=== PATIENT | male | born 1995 | race Caucasian/White ===

== ENCOUNTER → 2019-10-20 08:50 | Outpatient (CLI) | payer MEDICAID, SELFPAY ==
[2017-07-30 21:26] VITALS: BMI 26.5
[2019-10-20 10:41] LABS: Hemoglobin 14.3 g/dL (13.0-16.5); Mean Corp Hgb Conc 32.5 g/dL (32-36); Mean Corpuscular Hgb 29.2 pg (27.0-32.0); Mean Corpuscular Volume 89.8 fL (80-94); Mean Platelet Vol. 10.8 fl (6.2-12.0); Platelet Count 318 K/mm3 (150-450); RBC Distribution Width CV 13.2 % (11.6-14.6); RBC Distribution Width SD 43.6 fl (35.1-43.9); White Blood Count 10.3 K/mm3 (4.4-11.0)
[2019-10-20 11:13] LABS: ALB/GLOB Ratio 0.9 RATIO (0.9-2.4); AST(SGOT) 24 U/L (15-37); Alanine Aminotransfer ALT/SGPT 40 U/L (16-61); Alkaline Phosphatase 61 U/L (45-117); Anion Gap 6 (5-15); BUN 11 mg/dL (7-18); BUN/Creat Ratio 12.6 RATIO (10-20); Calcium,Total 9.3 mg/dL (8.5-10.1); Chloride 105 mmol/L (98-107); Creatinine, Serum 0.88 mg/dL (0.70-1.30); EST Glomerular Filtration Rate 112 mL/min (>60); Est Glom Filt Rate - Afr Amer 136 mL/min (>60); Globulin 4.3 g/dL (2.2-4.2); Glucose 125 mg/dL (74-106); Potassium 4.2 mmol/L (3.5-5.1); Protein, Total 8.3 g/dL (6.4-8.2); Sodium Level 140 mmol/L (136-145)
== END ==
LOC: LAB.FUTURE 08:55 → LAB 08:57
PROVIDERS: Family Provider Student in an Organized Health Care Education/Training Program; PCP Student in an Organized Health Care Education/Training Program; Referring Provider Student in an Organized Health Care Education/Training Program; Visit Provider Student in an Organized Health Care Education/Training Program
DX: I10 Essential (primary) hypertension (principal)
CPT/HCPCS: 36415; 80053; 85027

== ENCOUNTER → 2020-03-30 09:12 | Outpatient (CLI) | payer MEDICAID, SELFPAY ==
[2017-07-30 21:26] VITALS: BMI 26.5
[2020-03-30 10:06] LABS: Hematocrit 41.9 % (40-54); Hemoglobin 13.1 g/dL (13.0-16.5); Mean Corp Hgb Conc 31.3 g/dL (32-36); Mean Corpuscular Volume 92.7 fL (80-94); Mean Platelet Vol. 10.6 fl (6.2-12.0); Platelet Count 326 K/mm3 (150-450); RBC Distribution Width CV 13.4 % (11.6-14.6); RBC Distribution Width SD 45.9 fl (35.1-43.9); Red Blood Count 4.52 M/mm3 (4.6-6.2); White Blood Count 10.4 K/mm3 (4.4-11.0)
[2020-03-30 10:46] LABS: ALB/GLOB Ratio 0.9 RATIO (0.9-2.4); AST(SGOT) 14 U/L (15-37); Alanine Aminotransfer ALT/SGPT 29 U/L (16-61); Albumin, Serum 3.7 g/dL (3.2-5.0); Alkaline Phosphatase 57 U/L (45-117); Anion Gap 5 (5-15); BUN 15 mg/dL (7-18); BUN/Creat Ratio 18.9 RATIO (10-20); Calcium,Total 9.3 mg/dL (8.5-10.1); Chloride 106 mmol/L (98-107); Cholesterol 228 mg/dL (200); Creatinine, Serum 0.79 mg/dL (0.70-1.30); EST Glomerular Filtration Rate 125 mL/min (>60); Est Glom Filt Rate - Afr Amer 152 mL/min (>60); Globulin 4.2 g/dL (2.2-4.2); Glucose 106 mg/dL (74-106); High Density Lipoprotein 33 mg/dL; Potassium 4.2 mmol/L (3.5-5.1); Protein, Total 7.9 g/dL (6.4-8.2); Sodium Level 138 mmol/L (136-145); Triglycerides 310 mg/dL; Very Low Density Lipoprotein 62 mg/dL (5-40)
--- OUTSIDE RECORDS SUMMARY | 2020-08-16 17:40 | XMS RPT_ITS | CCD ---
:1995 External Reference #:[id number] Author Organization [facility] [employer] Care Team Providers Name Role Phone Unavailable Unavailable Unavailable Results Result Name Value Range Unit Interpretation Flag Date Location cur on 2020-01-21 CUR . Normal 01-21-2020 Zia feldman MICRO - Microbiology [facility] ([place]) ([id number]) PROCEDURE: Urine Culture [*1] SOURCE: Urine, Clean Catch BODY SITE: COLLECTED DATE/TIME: 01/18/20 14:49 EDT RECEIVED DATE/TIME: 01/19/2020 15:52 EDT START DATE/TIME: 01/19/2020 15:52 EDT FREE TEXT SOURCE: FINAL REPORTS Final Report [] Verified Date/Time/Personnel: 01/21/2020 07:55 EDT <10,000 cfu/ml. No Significant growth. Sensitivity not indicated. PRELIMINARY REPORTS Preliminary Report [] Verified Date/Time/Personnel: 01/20/2020 08:10 EDT No growth to date Performing Locations *1: This test was performed at: [facility], [address] [place] [address], [id number] , [facility] Comment: Performed By: #### CUR #### [address] [address] Summary Purpose Family History No Family History Records Found Advance Directives No Advanced Directives Records Found Additional Source Comments FOR RECORDS PERTAINING TO PATIENTS WHO ARE OR HAVE BEEN ENROLLED IN A CHEMICAL DEPENDENCY/SUBSTANCE ABUSE PROGRAM, SOME INFORMATION MAY BE OMITTED. This clinical summary was aggregated from multiple sources. Caution should be exercised in using it in the provision of clinical care. This summary normalizes information from multiple sources, and as a consequence, information in this document may materially changethe coding, format and clinical context of patient data. In addition, data may be omittedin some cases. CLINICAL DECISIONS SHOULD BE BASED ON THE PRIMARY CLINICAL RECORDS. [facility] provides no warranty or guarantee of the accuracy or completeness of information in this document. UNRECOGNIZED CONTENT PROVIDED BELOW FOR UNRECOGNIZED SECTION No Status Records Found UNRECOGNIZED CONTENT PROVIDED BELOW FOR UNRECOGNIZED SECTION INFORMATION SOURCE DATE CREATED AUTHOR AUTHOR'S ORGANIZATIO N 01/22/2020 [facility] Found ation ([place])
== END ==
PROVIDERS: PCP Student in an Organized Health Care Education/Training Program; Referring Provider Student in an Organized Health Care Education/Training Program; Visit Provider Student in an Organized Health Care Education/Training Program
DX: I10 Essential (primary) hypertension (principal)
CPT/HCPCS: 36415; 80053; 80061; 85027

== ENCOUNTER 2022-10-28 19:12 | Inpatient (IN) | payer MEDICAID, SELFPAY ==
[2022-10-28 19:13] VITALS: BP 148/84; PULSE 103; RESP 15; TEMP 36.9; O2SAT 100; BMI 26.9
--- NOTE | 2022-10-28 19:26 | ED.VIS.LOWEX ---
HPI History of Present Illness Chief Complaint: Fall Informant: patient and parent Narrative Narrative: History of developmental delay presents with mother evaluation unwitnessed fall in the basement while at sister's house. Pain in the distal right thigh. Reports not put much weight on it. Ibuprofen given. This happened 3 to 4 hours ago. Denies headache chest pains rib pains. Patient points to the distal anterior femur. PFSH PFSH Medical History History of repaired hypospadias Tonsillectomy planned Home Medications Vyvanse 07/30/17 [History Last Taken Unknown] multivitamin (Multiple Vitamins tablet) 1 ea PO DAILY 07/30/17 [History Last Taken Unknown] ondansetron 4 mg disintegrating tablet 4 mg PO Q8H PRN PRN Nausea #10 tabs 07/31/17 [Rx Last Taken Unknown] cetirizine 10 mg capsule (Zyrtec) 10 mg PO DAILY PRN 10/01/21 [History Last Taken Unknown] guanfacine 1 mg tablet 1 mg PO DAILY 10/01/21 [History Last Taken Unknown] lisinopril 2.5 mg tablet 2.5 mg PO DAILY 10/01/21 [History Last Taken Unknown] metformin 500 mg tablet 500 mg PO DAILY 10/01/21 [History Last Taken Unknown] nitrofurantoin macrocrystal 25 mg capsule 50 mg PO QHS 10/01/21 [History Last Taken Unknown] Allergy/AdvReac Type Severity Reaction Status Date / Time Penicillins Allergy Mild UNKNOWN Verified 10/28/22 19:13 Family History Mother Pre-diabetes Father Heart disease Diabetes Asthma Surgical History History of hand surgery Myringotomy tube status Social History Smoking Status: Never smoker alcohol intake: never substance use type: does not use ROS ROS ED Constitutional Constitutional ED: Denies chills, fever(s) or sweats Eyes Eyes: Denies change in vision ENT ENT ED: Denies dysphagia or sore throat Cardiovascular Cardiovascular: Denies chest pain, leg edema, palpitations or racing heartbeat Respiratory/Chest Respiratory/Chest: Denies cough, dyspnea or dyspnea on exertion Gastrointestinal Gastrointestinal: Denies abdominal pain, diarrhea, nausea or vomiting Genitourinary Genitourinary ED: Denies dysuria, hematuria or urinary frequency Musculoskeletal Musculoskeletal: Reports extremity pain; Denies back pain or neck pain Integumentary Denies rash or wounds Neurologic Neurologic: Denies headache(s), paresthesias or weakness EXAM Physical Exam Const Vital Signs: 10/28/22 19:13 10/28/22 19:33 Temperature 98.4 F Temperature Source Temporal Pulse Rate 103 H Respiratory Rate 15 Respiratory Effort Normal Respiratory Depth Normal Respiratory Pattern Normal Blood Pressure 148/84 H Blood Pressure Mean 105 Pulse Ox 100 Oxygen Delivery Method Room Air Positive well nourished and well developed Constitutional Narrative: Talking and answering questions appropriately. General Appearance ED: well developed and NAD HEENT Reports moist mucous membranes normocephalic and atraumatic Eyes PERRL, EOMs intact bilaterally and conjunctivae normal General Eye ED: Yes normal appearance of both eyes Neck no lymphadenopathy and supple General: Negative for tenderness Chest Wall Chest: Negative for tenderness Resp normal respiratory effort and normal air movement Effort and Inspection: symmetric chest movement; Negative for respiratory distress Cardio regular rate, regular rhythm and no murmurs Peripheral Pulses: pulses 2+ throughout GI normal to inspection, nondistended, normoactive bowel sounds and non-tender Palpation: Negative for guarding or rebound tenderness present Back/Spine no CVA tenderness and no thoracic nor lumbar tenderness Extremity normal to inspection Extremity Narrative: Right lower extremity: Negative logroll. No deformities of the thigh mild tenderness distal femur. Knee extensor is intact. Skin intact no ecchymosis. Neuro vas intact distally. General Extremety ED: Negative for edema or tenderness General Extremity: Negative for edema Neuro oriented x3 and no sensory deficits noted Sensorium / Orientation: awake and alert Skin no rashes or lesions noted and no wounds MDM MDM MDM Narrative Medical decision making narrative: Patient presenting with a fall pointing pain to the distal femur. There is no deformities. He is given Tylenol, 2 view femur x-ray obtained right side reviewed by myself read by radiology shows no acute process. 2030: Attempted to walk the patient bedside upon standing, reports pain in the same area of the femur and with sit back down. Clinical evaluation cannot reproduce the pain his extensor mechanism is intact he has no leg pain. With his the mental delay, I will obtain tib-fib films and reevaluate. Mother reporting that she cannot take care of him if he cannot walk. 2100: 2 view tib-fib reviewed by myself and read by radiology shows no acute process. Patient stable now time to ambulate. Therefore I discussed with hospitalist Dr. Grewal for admission to medical floor for observations. Radiography Diagnostic Testing: Clinical Impression(s) from Imaging Studies Femur X-Ray 10/28/22 20:04 IMPRESSION: No acute or healing fracture or malalignment. Electronically Signed: Les Crabtree MD at 20:25 EST Reading Location ID and State: [id number] / [place] Tel , Service support , Tibia/Fibula X-Ray 10/28/22 20:43 IMPRESSION: Negative right tibia and fibula x-rays. Electronically Signed: Les Crabtree MD at 20:59 EST , Discharge Plan Dx/Rx/DC Orders Clinical Impression: Contusion of right thigh, initial encounter, Fall, Developmental delay with autism spectrum disorder and gait instability Disposition Disposition: Acute Care Hospital [facility]
[2022-10-28] MEDS: Acetaminophen 500 MG Tablet 1000 MG PO (19:39)
--- NOTE | 2022-10-28 20:04 | RAD_ITS ---
EXAM: XR RIGHT FEMUR, 2 VIEWS CLINICAL INDICATION: injury TECHNIQUE: Frontal and lateral views of the right femur. This report was created using [employer] report generation technology. COMPARISON: None. FINDINGS: BONES/JOINTS: Prominent developmental bump at the superolateral right femoral head neck junction can predispose to femoral acetabular impingement. No acute fracture. No subluxation. Normal alignment. Preservation of the joint space. No sclerotic or destructive changes observed. SOFT TISSUES: Unremarkable. No soft tissue swelling or gas. No radiopaque foreign body. RAD/Femur Min 2 Views IMPRESSION: No acute or healing fracture or malalignment. Electronically Signed: Les Crabtree MD at 20:25 EST ,
--- NOTE | 2022-10-28 20:43 | RAD_ITS ---
EXAM: XR RIGHT TIBIA AND FIBULA, 2 VIEWS CLINICAL INDICATION: injury TECHNIQUE: Frontal and lateral views of the right tibia and fibula. This report was created using [employer] report generation technology. COMPARISON: None. FINDINGS: BONES/JOINTS: Unremarkable. No acute fracture. No subluxation. Normal alignment. Preservation of the joint space. No sclerotic or destructive changes observed. SOFT TISSUES: Unremarkable. No soft tissue swelling or gas. No radiopaque foreign body. RAD/Tibia & Fibula 2 Views IMPRESSION: Negative right tibia and fibula x-rays. Electronically Signed: Les Crabtree MD at 20:59 EST ,
--- NOTE | 2022-10-28 21:19 | HP.PCM.HOS_ITS ---
HPI - General General Date of Admission: 10/28/22 Date of Service: 10/28/22 Chief Complaint: Fall, RLE pain. HPI Narrative The patient is a 27 y/o M w/ PMHx: MRDD w/ cognitive impairment and ADHD, Allergic rhinitis, Diabetes mellitus type II, HTN, Overweight who presents to the [facility] ED on 10/28/22 with history of an unwitnessed fall in the basement while visiting his sister's house with onset of immediate distal right thigh discomfort and inability to bear weight with ibuprofen administration at that time reportedly happening approximately 3 to 4 hours prior to initial ED arrival but given ongoing debility and discomfort prompted ED evaluation. Patient specifically notes ongoing distal anterior thigh pain just superior to the knee but has no specific pain with palpation nor any concerning findings on exam but when attempted to bear weight is unable to still do so in the ED. He is unable to state the exact level of pain on a 10 scale and reports it is more sharp when he attempts to bear weight. Work-up in the ED included T98.4, heart rate 103, BP 148/84, respiratory rate 15, 100% on room air, plain film of the right femur with no acute or healing fracture or malalignment, film of the right tibia/fibula with no acute findings. In the ED although exam not marked appearing and no obvious pain with palpation especially distracted patient with ongoing difficulty to bear weight and mother reporting difficulty caring for h imself by her self therefore plan admission for further evaluation and therapy assessments. [facility] Medical History (Updated 10/28/22 @ 21:[address] Vanessa Grewal MD) ADHD Allergic rhinitis Cognitive impairment Diabetes mellitus, type 2 HTN (hypertension) Hx-hypospadias Overweight Home Medications Vyvanse 07/30/17 [History Last Taken Unknown] multivitamin (Multiple Vitamins tablet) 1 ea PO DAILY 07/30/17 [History Last Taken Unknown] ondansetron 4 mg disintegrating tablet 4 mg PO Q8H PRN PRN Nausea #10 tabs 07/31/17 [Rx Last Taken Unknown] cetirizine 10 mg capsule (Zyrtec) 10 mg PO DAILY PRN 10/01/21 [History Last Taken Unknown] guanfacine 1 mg tablet 1 mg PO DAILY 10/01/21 [History Last Taken Unknown] lisinopril 2.5 mg tablet 2.5 mg PO DAILY 10/01/21 [History Last Taken Unknown] metformin 500 mg tablet 500 mg PO DAILY 10/01/21 [History Last Taken Unknown] nitrofurantoin macrocrystal 25 mg capsule 50 mg PO QHS 10/01/21 [History Last Taken Unknown] Allergy/AdvReac Type Severity Reaction Status Date / Time Penicillins Allergy Mild UNKNOWN Verified 10/28/22 19:13 Family History Mother Pre-diabetes Father Heart disease Diabetes Asthma Surgical History (Updated 10/28/22 @ 21:[address] Vanessa Grewal MD) History of genitourinary surgical procedure History of hand surgery Myringotomy tube status Social History Smoking Status: Never smoker alcohol intake: never substance use type: does not use ROS ROS Narrative Admission Review of Systems: CONSTITUTIONAL: No weight loss, fever, chills, + weakness or fatigue. HEENT: Eyes: No visual loss, blurred vision, double vision or yellow sclerae. Ears, Nose, Throat: No hearing loss, sneezing, congestion, runny nose or sore throat. SKIN: No rash or itching, lesions, wounds. CARDIOVASCULAR: No chest pain, chest pressure or chest discomfort, palpitations, edema, orthopnea, syncopal events. RESPIRATORY: No shortness of breath, cough or sputum, wheezing, hemoptysis. GASTROINTESTINAL: No anorexia, nausea, vomiting or diarrhea, abdominal pain, melena, BRBPR. GENITOURINARY: No dysuria, frequency, urgency or retention. NEUROLOGICAL: + Chronic cognitive impairment with underlying MRDD, no headache, dizziness, syncope, paralysis, ataxia, numbness or tingling in the extremities, focal weakness, change in bowel or bladder control, seizure. MUSCULOSKELETAL: + muscle, back pain, joint pain or stiffness. HEMATOLOGIC: No anemia, bleeding or bruising. LYMPHATICS: No enlarged nodes. No history of splenectomy. PSYCHIATRIC: + ADHD. No history of depression or anxiety. ENDOCRINOLOGIC: No reports of sweating, cold or heat intolerance. No polyuria or polydipsia. ALLERGIES: + history of rhinitis. Vital Signs Vital Signs Vital Signs: 10/28/22 19:13 10/28/22 19:33 Temperature 98.4 F Temperature Source Temporal Pulse Rate 103 H Respiratory Rate 15 Respiratory Effort Normal Respiratory Depth Normal Respiratory Pattern Normal Blood Pressure 148/84 H Blood Pressure Mean 105 Pulse Ox 100 Oxygen Delivery Method Room Air Weight Weight: 215 lb Body Mass Index (BMI) 26.9 Physical Exam Narrative Physical Examination: General: Awake, alert, oriented to self, place and recent events and cooperative, seated upright in the ED bed, interactive, still pointing to the distal anterior thigh region and notes painful. Skin: Normal color, normal turgor, no icterus, no cyanosis. HEENT: AT/NC, EOMI, PERRLA, MMM, no carotid bruits or JVD noted. Lungs: Mildly diminished, greater bases, poor effort, no rales, ronchi or wheezing. Heart: Mildly tachycardic with regular rhythm; no gallop, rub audible. Abdomen: Soft, overweight, NTTP, ND, normal BS, no HSM. Extremities: No cyanosis, no clubbing, no edema, patient unable to bend right knee but with assistance is able to perform, no pain to palpation of the distal anterior thigh, no significant warmth or edema noted, negative Jovani's testing, negative Rachel testing. Neurological: Patient awake, alert, oriented as noted, cognitive function baseline intact with underlying MRDD and chronic cognitive impairment/deficit; pupils equally reactive to light and accommodation, cranial nerves II-XII grossly normal, moving all 4 extremities except limited right lower extremity movement although with examination and assistance does not appear to be in pain and is able to have range of motion, strength however upon requested self- directed activity and any bearing weight attempt significantly inhibited. Psychiatric: Affect appears mildly flat, no acute evidence of depressive or anxiety feelings. Results Radiology Impression Femur X-Ray 10/28/22 20:04 IMPRESSION: No acute or healing fracture or malalignment. Electronically Signed: eLs Crabtree MD at 20:25 EST , Tibia/Fibula X-Ray 10/28/22 20:43 IMPRESSION: Negative right tibia and fibula x-rays. Electronically Signed: Les Crabtree MD at 20:59 EST Reading Location ID and State: [facility] / [place] Tel , Service support , Assessment & Plan Assessment/Plan (1) Contusion of right thigh, initial encounter: PLAN: Plan The patient is a 27 y/o M w/ PMHx: MRDD w/ cognitive impairment and ADHD, Allergic rhinitis, Diabetes mellitus type II, HTN, Overweight who presents to the [facility] ED on 10/28/22 with history of an unwitnessed fall in the basement while visiting his sister's house with onset of immediate distal right thigh discomfort and inability to bear weight with ibuprofen administration at that time reportedly happening approximately 3 to 4 hours prior to initial ED arrival but given ongoing debility and discomfort prompted ED evaluation. #1. Mechanical fall, unwitnessed with intractable right distal anterior thigh discomfort, suspected contusion: Plain film of the right tibia/fibula and right femur unremarkable. Given debility and ongoing discomfort will admit to medical surgical floor, will obtain admission CBC and CMP for medication dosing, if appropriate will continue with as needed Tylenol, use topical osteoarthritic zoran n component, consider addition of Toradol if renal function appropriate, maintain on fall precautions, therapies as well as case management consulted, will attempt also icing application or if not febrile may even consider heat depending on patient preference. If necessary may also add oral narcotic therapies. We will have patient reassessed by therapy and if ongoing debility or difficulty may need to further image and involve orthopedic surgery if appropriate. #2. MRDD with cognitive impairment, ADHD associated: Unclear specific deficit type, from discussion appears high functioning, complicates presentation is difficulty relating his specific discomfort and debility, we will continue patient home Vyvanse regimen was clarified. Case management consult as well as therapies as noted. #3. Hypertension: Continue home regimen including lisinopril, PRN hydralazine. #4. Diabetes mellitus type II: Hold oral home regimen, ADA diet, accu checks w/ ISS. #5. Overweight: Weight loss and lifestyle changes encouraged. #6. Allergic rhinitis: We will continue patient home sertraline regimen. #7. DVT prophylaxis: Low risk however if prolonged immobility will need to initiate. Charges/Coding Visit Charges OBSV E&M: 51810 Initial observation care L2
[2022-10-28 21:56] VITALS: BP 134/80; PULSE 76; RESP 15; TEMP 36.8; O2SAT 99
[2022-10-28 22:15] VITALS: BP 147/76; PULSE 101; RESP 18; TEMP 36.8; O2SAT 100; BMI 29.0
--- NOTE | 2022-10-28 22:51 | ECHOD_ITS ---
Version 2 Reason For Study: MURMUR Procedure This was a 2D Doppler, Color Flow transthoracic echocardiogram. Technically difficult study, Definity deferred due to uncooperative patient. Exam performed portable in patient room. Left Ventricle Normal size and thickness. The left ventricular ejection fraction is 65 %. No evidence for diastolic dysfunction. Right Ventricle Normal right ventricle. Atria The left and right atria are normal. Mitral Valve Chordal systolic anterior motion of the mitral valve. Mild (1+) mitral valve insufficiency. Tricuspid Valve Mild tricuspid valve insufficiency. Pulmonary artery systolic pressure is 49 mmHg. Aortic Valve The aortic valve is not well visualized. Pulmonic Valve The pulmonic valve is not well visualized. Great Vessels Aortic root not well visualized. Pericardium/Pleural No pericardial effusion. MMode/2D Measurements & Calculations RVDd: 3.8 cm LAV(MOD-bp): 63.5 ml LA A4 area: 19.8 cm2 LAV(MOD-bp) Indexed: 27.7 ml/m2 LAV(MOD-sp2): 68.6 ml LAV(MOD-sp4): 53.2 ml RA A4 area: 12.5 cm2 Time Measurements MV dec time: 0.18 sec Doppler Measurements & Calculations MV E max kristofer: 142.8 cm/sec Lat Peak E' Kristofer: 12.9 cm/sec Med Peak E' Kristofer: 9.1 cm/sec MV A max kristofer: 112.0 cm/sec E/E' lat: 11.1 E/E' med: 15.7 MV E/A: 1.3 MV V2 max: 132.9 cm/sec MV dec slope: 808.3 cm/sec2 Ao V2 max: 258.1 cm/sec MV max P.1 mmHg Ao max P.8 mmHg MV V2 mean: 106.4 cm/sec Ao V2 mean: 185.4 cm/sec MV mean P.8 mmHg Ao mean P.4 mmHg MV V2 VTI: 27.2 cm Ao V2 VTI: 43.9 cm PA V2 max: 154.6 cm/sec TR max kristofer: 332.6 cm/sec TR max P.3 mmHg ECHO/Echo Complete Interpretation Summary Technically difficult study, The left ventricular ejection fraction is 65 %. Mild (1+) mitral valve insufficiency. Chordal systolic anterior motion of the mitral valve. with mild to moderate LVO T radient.. Pulmonary artery systolic pressure is 49 mmHg. Mild tricuspid valve insufficiency. Ordering Physician: Vanessa Grewal Performed By: Bety Bello RCS
[2022-10-28] MEDS: Arthritis Pain Compound 60 CLICK TUBE TOPICAL (23:31)
[2022-10-29 00:01] LABS: Bedside Glucose 103 mg/dL (74-106)
[2022-10-29 04:00] VITALS: BP 132/75; PULSE 92; RESP 20; TEMP 36.4; O2SAT 97
[2022-10-29 06:21] LABS: Absolute Lymphocyte Count 3.35 X10^3/uL (0.83-4.51); Absolute Neutrophil Count 8.6 X10^3/uL (2.0-7.7); Basophil# 0.01 X10^3/uL; Basophil% 0.1 % (0-1); Eosinophil# 0.27 X10^3/uL; Hematocrit 37.1 % (40-54); Hemoglobin 12.1 g/dL (13.0-16.5); Lymphocyte # 3.35 X10^3/ul (0.83-4.51); Lymphocyte % 24.7 % (19-41); Mean Corp Hgb Conc 32.6 g/dL (32-36); Mean Corpuscular Hgb 29.3 pg (27.0-32.0); Mean Corpuscular Volume 89.8 fL (80-94); Mean Platelet Vol. 10.5 fl (6.2-12.0); Monocyte# 1.28 X10^3/uL; Monocyte% 9.5 % (0-10); NRBC Flagged by Analyzer 0 % (0-5); Neutrophil # 8.57 X10^3/uL (2.7-7.7); Neutrophil % 63.3 % (47-70); Platelet Count 338 K/mm3 (150-450); RBC Distribution Width CV 13.6 % (11.6-14.6); RBC Distribution Width SD 44.4 fl (35.1-43.9); Red Blood Count 4.13 M/mm3 (4.6-6.2); White Blood Count 13.5 K/mm3 (4.4-11.0)
[2022-10-29 06:55] LABS: Bedside Glucose 99 mg/dL (74-106)
[2022-10-29 07:04] LABS: Anion Gap 9 (5-15); BUN 17 mg/dL (7-18); BUN/Creat Ratio 18.6 RATIO (10-20); Chloride 106 mmol/L (98-107); Creatinine, Serum 0.92 mg/dL (0.70-1.30); EST Glomerular Filtration Rate 104 mL/min (>60); Est Glom Filt Rate - Afr Amer 126 mL/min (>60); Estimated Creatinine Clearance 138.99 ml/min; Glucose 105 mg/dL (74-106); Sodium Level 136 mmol/L (136-145)
[2022-10-29] MEDS: Acetaminophen 325 MG Tablet 650 MG PO ×2 (08:49→13:36)
[2022-10-29 08:50] VITALS: BP 148/90; PULSE 94; RESP 16; TEMP 36.7; O2SAT 97
[2022-10-29] MEDS: Arthritis Pain Compound 60 CLICK TUBE TOPICAL ×2 (08:50→21:18)
[2022-10-29 12:35] LABS: Bedside Glucose 111 mg/dL (74-106)
[2022-10-29 13:39] VITALS: BP 152/90; PULSE 90; RESP 15; TEMP 36.6; O2SAT 98
[2022-10-29 15:23] VITALS: O2SAT 98
[2022-10-29 16:40] LABS: Bedside Glucose 98 mg/dL (74-106)
--- NOTE | 2022-10-29 18:03 | PN.HOSP_ITS ---
Subjective Subjective Reports that he continues to hurt, sitting up in bed about to eat at time of exam, did not voice any other specific complaints Objective Data Objective Data Vital Signs: Vital Signs Temp Pulse Resp BP Pulse Ox O2 Del Method 97.9 F 90 15 152/90 H 98 Room Air 10/29/22 13:39 10/29/22 13:39 10/29/22 13:39 10/29/22 13:39 10/29/22 15:23 10/29/22 15:23 Oxygen Delivery Method Room Air Weight: 102.7 kg Body Mass Index (BMI) 29.0 Intake & Output: Intake and Output for Last 24 Hours 10/27/22 10/28/22 10/29/22 23:59 23:59 23:59 Intake Total 540 / 540 Balance 540 / 540 Lab / Micro Data Result Diagrams: 10/29/22 05:30 10/29/22 05:30 Labs: Laboratory Results - last 24 hr 10/28/22 23:25: POC Glucose 103 10/29/22 05:30: WBC 13.5 H, RBC 4.13 L, Hgb 12.1 L, Hct 37.1 L, MCV 89.8, MCH 29.3, MCHC 32.6, RDW Std Deviation 44.4 H, RDW Coeff of Ese 13.6, Plt Count 338, MPV 10.5, Immature Gran % (Auto) 0.400, Neut % (Auto) 63.3, Lymph % (Auto) 24.7, [place] % (Auto) 9.5, Eos % (Auto) 2.0, Baso % (Auto) 0.1, Absolute Neuts (auto) 8.6 H, Absolute Lymphs (auto) 3.35, Nucleated RBC % 0 10/29/22 05:30: Sodium 136, Potassium 4.0, Chloride 106, Carbon Dioxide 21.0, Anion Gap 9, BUN 17, Creatinine 0.92, Estim Creat Clear Calc 138.99, Est GFR (M DRD) Af Amer 126, Est GFR (MDRD) Non-Af 104, BUN/Creatinine Ratio 18.6, Glucose 105, Calcium 9.0 10/29/22 06:18: POC Glucose 99 10/29/22 12:13: POC Glucose 111 H 10/29/22 16:04: POC Glucose 98 Radiography Diagnostic Testing: Radiology Impression Femur X-Ray 10/28/22 20:04 IMPRESSION: No acute or healing fracture or malalignment. Electronically Signed: Les Crabtree MD at 20:25 EST , Tibia/Fibula X-Ray 10/28/22 20:43 IMPRESSION: Negative right tibia and fibula x-rays. Electronically Signed: Les Crabtree MD at 20:59 EST , Physical Exam Const alert and no apparent distress HEENT head/scalp atraumatic Eyes Eyes Narrative: EOM grossly intact, anicteric Neck supple Resp normal respiratory effort and clear to auscultation bilaterally Cardio regular rate and regular rhythm GI soft to palpation, non-tender and non-distended Extremity Extremity Narrative: No edema appreciated, reported pain on palpation of right thigh Neuro Neuro Narrative: No overt focal deficits appreciated, moving extremities in bed Psych Psych Narrative: Minimally cooperative Assessment & Plan Assessment/Plan (1) Contusion of right thigh, initial encounter: PLAN: Plan #Right anterior thigh pain after mechanical fall X-ray in ED unremarkable Physical therapy recommending long-term placement Will repeat x-ray in the a.m. in the event early x-ray was false negative Will need to discuss with family about dispo Pain control #Intellectual disability, autism, ADHD Supportive care #Hypertension Continue home lisinopril #Type 2 diabetes mellitus Accu-Cheks with sliding scale insulin Charges/Coding Visit Charges OBSV E&M: 04287 Subsequent observation care L2
[2022-10-29] MEDS: Ibuprofen 600 MG Tablet PO (18:11)
[2022-10-29 21:11] VITALS: BP 144/92; PULSE 91; RESP 18; TEMP 36.8; O2SAT 96
[2022-10-29 21:45] LABS: Bedside Glucose 105 mg/dL (74-106)
[2022-10-30 02:02] VITALS: BP 140/87; PULSE 80; RESP 18; TEMP 36.6; O2SAT 96
[2022-10-30] MEDS: Acetaminophen 325 MG Tablet 650 MG PO ×3 (02:04→14:24)
--- NOTE | 2022-10-30 05:55 | RAD_ITS ---
INDICATION: Acute pain after a fall EXAMINATION/TECHNIQUE: X-RAY -right femur, 4 views COMPARISON: None. FINDINGS: SOFT TISSUES: No soft tissue swelling or gas. No radiopaque foreign body. BONES/JOINTS: No acute fracture or subluxation.. Normal alignment. Preservation of the joint space.. No sclerotic or destructive changes observed. RAD/Femur Min 2 Views IMPRESSION: Negative. Electronically Signed: Adán Dominguez MD at 15:43 EST ,
[2022-10-30] MEDS: Ibuprofen 600 MG Tablet PO ×2 (06:33→20:33)
[2022-10-30 06:54] LABS: Absolute Lymphocyte Count 3.18 X10^3/uL (0.83-4.51); Absolute Neutrophil Count 8.1 X10^3/uL (2.0-7.7); Basophil# 0.02 X10^3/uL; Basophil% 0.2 % (0-1); Eosinophil# 0.38 X10^3/uL; Hematocrit 35.6 % (40-54); Hemoglobin 12.1 g/dL (13.0-16.5); Lymphocyte # 3.18 X10^3/ul (0.83-4.51); Lymphocyte % 24.9 % (19-41); Mean Corpuscular Hgb 30.5 pg (27.0-32.0); Mean Corpuscular Volume 89.7 fL (80-94); Mean Platelet Vol. 10.8 fl (6.2-12.0); Monocyte# 1.07 X10^3/uL; Monocyte% 8.4 % (0-10); NRBC Flagged by Analyzer 0 % (0-5); Neutrophil % 63.2 % (47-70); Platelet Count 309 K/mm3 (150-450); RBC Distribution Width CV 13.5 % (11.6-14.6); RBC Distribution Width SD 44.5 fl (35.1-43.9); Red Blood Count 3.97 M/mm3 (4.6-6.2); White Blood Count 12.8 K/mm3 (4.4-11.0)
[2022-10-30 07:05] LABS: Bedside Glucose 98 mg/dL (74-106)
[2022-10-30 07:15] LABS: ALB/GLOB Ratio 0.9 RATIO (0.9-2.4); AST(SGOT) 15 U/L (15-37); Alanine Aminotransfer ALT/SGPT 27 U/L (16-61); Albumin, Serum 3.4 g/dL (3.2-5.0); Alkaline Phosphatase 29 U/L (45-117); Anion Gap 7 (5-15); BUN 13 mg/dL (7-18); BUN/Creat Ratio 16.6 RATIO (10-20); Chloride 106 mmol/L (98-107); Creatinine, Serum 0.78 mg/dL (0.70-1.30); EST Glomerular Filtration Rate 125 mL/min (>60); Est Glom Filt Rate - Afr Amer 151 mL/min (>60); Estimated Creatinine Clearance 163.93 ml/min; Globulin 3.8 g/dL (2.2-4.2); Glucose 102 mg/dL (74-106); Potassium 3.7 mmol/L (3.5-5.1); Protein, Total 7.2 g/dL (6.4-8.2); Sodium Level 137 mmol/L (136-145)
[2022-10-30 08:17] VITALS: BP 140/84; PULSE 87; RESP 20; TEMP 36.6; O2SAT 98
[2022-10-30 09:32] VITALS: O2SAT 96
[2022-10-30] MEDS: Arthritis Pain Compound 60 CLICK TUBE TOPICAL ×2 (10:18→20:32)
[2022-10-30] MEDS: Lisinopril 10 MG Tablet PO (10:18)
[2022-10-30] MEDS: Multivitamins,Therapeutic Tablet 1 TABLET PO (10:18)
[2022-10-30] MEDS: Loratadine 10 MG Tablet PO (10:18)
[2022-10-30] MEDS: Nitrofurantoin Macrocrystals 100 MG Capsule PO (10:20)
[2022-10-30] MEDS: Fenofibrate 145 MG Tablet PO (10:20)
[2022-10-30 12:00] LABS: Bedside Glucose 138 mg/dL (74-106)
--- NOTE | 2022-10-30 12:05 | CASEMGMT ---
Addendum entered by Hedy Allen 10/30/22 13:31: SW received list from pt mother, Cassandra, regarding choice for SNF. Preference is [facility] first, then [facility] as second choice. SW informed Denisse Rosa, discharge assistant golf professional of [place]. Denisse to send referral. [facility] Original Note: Social Work? SW in to meet with pt and pt mother following update from that pt will likely need placement at nursing facility for rehab. SW? introduced self and role at the hospital. Pt mother agreeable to discussing discharge planning. Pt unable to contribute, mother is legal decision maker. A list of SNF providers including quality and resource use data and consistent with the patient?s preferred geographic region, medical needs, and insurance network were provided from the [employer] Guide. Pt mother reviewed list but asked if an answer can be given later this day as mother would like to discuss with pt father. Pt mother to request a meet with SW later this day or write down top few choices and give to medical secretary teacher to provide to SW. ? PLAN: SNF? [facility]?
--- NOTE | 2022-10-30 12:17 | PN.HOSP_ITS ---
Subjective Subjective Resting comfortably in bed, did not appear in pain when palpating his femur/thigh but did not want to move it because he was reporting was painful. No other complaints voiced Objective Data Objective Data Vital Signs: Vital Signs Temp Pulse Resp BP Pulse Ox O2 Del Method 97.8 F 87 20 H 140/84 H 96 Room Air 10/30/22 08:17 10/30/22 08:17 10/30/22 08:17 10/30/22 08:17 10/30/22 09:32 10/30/22 08:17 Oxygen Delivery Method Room Air Weight: 102.7 kg Body Mass Index (BMI) 29.0 Intake & Output: Intake and Output for Last 24 Hours 10/28/22 10/29/22 10/30/22 23:59 23:59 23:59 Intake Total 1640 / 1640 400 / 400 Output Total 150 / 150 Balance 1640 / 1640 250 / 250 Lab / Micro Data Result Diagrams: 10/30/22 05:09 10/30/22 05:09 Labs: Laboratory Results - last 24 hr 10/29/22 12:13: POC Glucose 111 H 10/29/22 16:04: POC Glucose 98 10/29/22 21:15: POC Glucose 105 10/30/22 05:09: WBC 12.8 H, RBC 3.97 L, Hgb 12.1 L, Hct 35.6 L, MCV 89.7, MCH 30.5, MCHC 34.0, RDW Std Deviation 44.5 H, RDW Coeff of Ese 13.5, Plt Count 309, MPV 10.8, Immature Gran % (Auto) 0.300, Neut % (Auto) 63.2, Lymph % (Auto) 24.9, [place] % (Auto) 8.4, Eos % (Auto) 3.0, Baso % (Auto) 0.2, Absolute Neuts (auto) 8.1 H, Absolute Lymphs (auto) 3.18, Nucleated RBC % 0 10/30/22 05:09: Sodium 137, Potassium 3.7, Chloride 106, Carbon Dioxide 24.0, Anion Gap 7, BUN 13, Creatinine 0.78, Estim Creat Clear Calc 163.93, Est GFR (MDRD) Af Amer 151, Est GFR (MDRD) Non-Af 125, BUN/Creatinine Ratio 16.6, Glucose 102, Calcium 9.0, Total Bilirubin 0.60, AST 15, ALT 27, Alkaline Phosphatase 29 L, Total Protein 7.2, Albumin 3.4, Globulin 3.8, Albumin/Globulin Ratio 0.9 10/30/22 06:31: POC Glucose 98 10/30/22 11:40: POC Glucose 138 H Physical Exam Const alert and no apparent distress HEENT head/scalp atraumatic Eyes Eyes Narrative: EOM grossly intact, anicteric Neck supple Resp normal respiratory effort and clear to auscultation bilaterally Cardio regular rate and regular rhythm GI soft to palpation, non-tender and non-distended Extremity Extremity Narrative: No edema appreciated, would not move right leg as he said it was painful but does not appear to have any pain or discomfort on palpation or manipulation of the area Neuro Neuro Narrative: No overt focal deficits appreciated, moving extremities in bed Psych Psych Narrative: Slightly more cooperative Assessment & Plan Assessment/Plan (1) Contusion of right thigh, initial encounter: PLAN: Plan #Right anterior thigh pain after mechanical fall X-ray in ED unremarkable Physical therapy recommending long-term placement Will repeat x-ray in the a.m. in the event early x-ray was false negative Will need to discuss with family about dispo Pain control 10/30: Pain reports are inconsistent but still reluctant to bear weight on this, repeat x-ray pending. May need further imaging or Ortho eval depending on how he does today and results of the imaging. Continue Tylenol and ibuprofen, if needs further pain control can always escalate this. Discussed with his mother. Will likely need placement for some duration of time if he is still unable to bear weight #Intellectual disability, autism, ADHD Supportive care #Hypertension Continue home lisinopril #Type 2 diabetes mellitus Accu-Cheks with sliding scale insulin Charges/Coding Visit Charges OBSV E&M: 67010 Subsequent observation care L2
--- NOTE | 2022-10-30 13:44 | CASEMGMT ---
Discharge Medical Lab Scientist This com writer sent referral to [facility] via [facility]. Nasreen STEPHENS Teletype Telegrapher
[2022-10-30 14:17] VITALS: BP 139/83; PULSE 79; RESP 18; TEMP 36.9; O2SAT 100
--- NOTE | 2022-10-30 14:31 | CASEMGMT ---
Discharge Strapper And Buffer Referral was not suppose to go to [facility]. [facility] [place]. This rfp writer sent referral to [facility]. Nasreen STEPHENS Secondary Set Up Man
[2022-10-30 17:10] LABS: Bedside Glucose 98 mg/dL (74-106)
[2022-10-30 20:25] VITALS: BP 135/90; PULSE 87; RESP 18; TEMP 36.7; O2SAT 100
[2022-10-31 02:58] VITALS: BP 126/73; PULSE 81; RESP 18; TEMP 37.1; O2SAT 97
[2022-10-31] MEDS: Acetaminophen 325 MG Tablet 650 MG PO ×3 (03:07→17:23)
[2022-10-31 05:35] LABS: Absolute Lymphocyte Count 3.44 X10^3/uL (0.83-4.51); Absolute Neutrophil Count 6.1 X10^3/uL (2.0-7.7); Basophil# 0.02 X10^3/uL; Basophil% 0.2 % (0-1); Eosinophil# 0.38 X10^3/uL; Eosinophils% 3.4 % (0-5); Hematocrit 37.5 % (40-54); Hemoglobin 12.5 g/dL (13.0-16.5); Lymphocyte # 3.44 X10^3/ul (0.83-4.51); Lymphocyte % 31.2 % (19-41); Mean Corp Hgb Conc 33.3 g/dL (32-36); Mean Corpuscular Hgb 29.8 pg (27.0-32.0); Mean Corpuscular Volume 89.3 fL (80-94); Mean Platelet Vol. 10.1 fl (6.2-12.0); Monocyte# 1.05 X10^3/uL; Monocyte% 9.5 % (0-10); NRBC Flagged by Analyzer 0 % (0-5); Neutrophil # 6.12 X10^3/uL (2.7-7.7); Neutrophil % 55.4 % (47-70); Platelet Count 307 K/mm3 (150-450); RBC Distribution Width CV 13.7 % (11.6-14.6); RBC Distribution Width SD 45.1 fl (35.1-43.9)
[2022-10-31 06:02] LABS: ALB/GLOB Ratio 0.8 RATIO (0.9-2.4); AST(SGOT) 14 U/L (15-37); Alanine Aminotransfer ALT/SGPT 26 U/L (16-61); Albumin, Serum 3.4 g/dL (3.2-5.0); Alkaline Phosphatase 29 U/L (45-117); Anion Gap 4 (5-15); BUN 14 mg/dL (7-18); BUN/Creat Ratio 16.6 RATIO (10-20); Calcium,Total 9.2 mg/dL (8.5-10.1); Chloride 106 mmol/L (98-107); Creatinine, Serum 0.84 mg/dL (0.70-1.30); EST Glomerular Filtration Rate 114 mL/min (>60); Est Glom Filt Rate - Afr Amer 138 mL/min (>60); Estimated Creatinine Clearance 152.22 ml/min; Glucose 106 mg/dL (74-106); Potassium 4.1 mmol/L (3.5-5.1); Protein, Total 7.4 g/dL (6.4-8.2); Sodium Level 136 mmol/L (136-145)
[2022-10-31 08:00] VITALS: BP 131/93; PULSE 78; RESP 18; TEMP 36.5; O2SAT 99
[2022-10-31] MEDS: Fenofibrate 145 MG Tablet PO (08:07)
--- NOTE | 2022-10-31 08:07 | PN.HOSP_ITS ---
Subjective Subjective Patient resting comfortably in bed reports right leg feels awesome Objective Data Objective Data Vital Signs: Vital Signs Temp Pulse Resp BP Pulse Ox O2 Del Method 97.7 F L 78 18 131/93 H 99 Room Air 10/31/22 08:00 10/31/22 08:00 10/31/22 08:00 10/31/22 08:00 10/31/22 08:00 10/31/22 08:00 Oxygen Delivery Method Room Air Weight: 102.7 kg Body Mass Index (BMI) 29.0 Intake & Output: Intake and Output for Last 24 Hours 10/29/22 10/30/22 10/31/22 23:59 23:59 23:59 Intake Total 1640 / 1640 400 / 400 Output Total 350 / 350 Balance 1640 / 1640 50 / 50 Lab / Micro Data Result Diagrams: 10/31/22 04:57 10/31/22 04:57 Labs: Laboratory Results - last 24 hr 10/30/22 11:40: POC Glucose 138 H 10/30/22 16:53: POC Glucose 98 10/31/22 04:57: WBC 11.0, RBC 4.20 L, Hgb 12.5 L, Hct 37.5 L, MCV 89.3, MCH 29.8, MCHC 33.3, RDW Std Deviation 45.1 H, RDW Coeff of Ese 13.7, Plt Count 307, MPV 10.1, Immature Gran % (Auto) 0.300, Neut % (Auto) 55.4, Lymph % (Auto) 31.2, [place] % (Auto) 9.5, Eos % (Auto) 3.4, Baso % (Auto) 0.2, Absolute Neuts (auto) 6.1, Absolute Lymphs (auto) 3.44, Nucleated RBC % 0 10/31/22 04:57: Sodium 136, Potassium 4.1, Chloride 106, Carbon Dioxide 26.0, Anion Gap 4 L, BUN 14, Creatinine 0.84, Estim Creat Clear Calc 152.22, Est GFR (MDRD) Af Amer 138, Est GFR (MDRD) Non-Af 114, BUN/Creatinine Ratio 16.6, Glucose 106, Calcium 9.2, Total Bilirubin 0.50, AST 14 L, ALT 26, Alkaline Phosphatase 29 L, Total Protein 7.4, Albumin 3.4, Globulin 4.0, Albumin/Globulin Ratio 0.8 L Radiography Diagnostic Testing: Radiology Impression Echocardiogram 10/28/22 22:51 Interpretation Summary Technically difficult study, The left ventricular ejection fraction is 65 %. Mild (1+) mitral valve insufficiency. Chordal systolic anterior motion of the mitral valve. with mild to moderate LVOT radient.. Pulmonary artery systolic pressure is 49 mmHg. Mild tricuspid valve insufficiency. Ordering Physician: Vanessa Grewal Performed By: Bety Bello RCS Femur X-Ray 10/30/22 05:55 IMPRESSION: Negative. Electronically Signed: Adán Dominguez MD at 15:43 EST , Physical Exam Const alert and no apparent distress HEENT head/scalp atraumatic Eyes Eyes Narrative: EOM grossly intact, anicteric Neck supple Resp normal respiratory effort and clear to auscultation bilaterally Cardio regular rate and regular rhythm GI soft to palpation, non-tender and non-distended Extremity Extremity Narrative: No edema appreciated, moves right leg in the bed Neuro Neuro Narrative: No overt focal deficits appreciated, moving extremities in bed Psych Psych Narrative: Cooperative this morning Assessment & Plan Assessment/Plan (1) Contusion of right thigh, initial encounter: PLAN: Plan #Right anterior thigh pain after mechanical fall X-ray in ED unremarkable Physical therapy recommending long-term placement Will repeat x-ray in the a.m. in the event early x-ray was false negative Will need to discuss with family about dispo Pain control 10/30: Pain reports are inconsistent but still reluctant to bear weight on this, repeat x-ray pending. May need further imaging or Ortho eval depending on how he does today and results of the imaging. Continue Tylenol and ibuprofen, if needs further pain control can always escalate this. Discussed with his mother. Will likely need placement for some duration of time if he is still unable to bear weight 10/31: X-ray with no fracture, can consider further imaging but he reported his leg was feeling fine this morning and he was moving it, will assess how he works with physical therapy to assess if he can go home versus placement. #Intellectual disability, autism, ADHD Supportive care #Hypertension Continue home lisinopril Charges/Coding Visit Charges OBSV E&M: 66808 Subsequent observation care L1
[2022-10-31] MEDS: Arthritis Pain Compound 60 CLICK TUBE TOPICAL ×2 (08:08→21:38)
[2022-10-31] MEDS: Multivitamins,Therapeutic Tablet 1 TABLET PO (08:08)
[2022-10-31] MEDS: Loratadine 10 MG Tablet PO (08:08)
[2022-10-31] MEDS: Lisinopril 10 MG Tablet PO (08:08)
[2022-10-31] MEDS: Nitrofurantoin Macrocrystals 100 MG Capsule PO (08:08)
--- NOTE | 2022-10-31 08:18 | NURSING ---
Emergency documentation initiated
--- NOTE | 2022-10-31 08:18 | CASEMGMT ---
Discharge C4 Planner This health underwriter reached out to follow up on referral. Referral still pending at [facility] at this moment. Nasreen STEPHENS Civil Engineering Intern
--- NOTE | 2022-10-31 09:05 | CASEMGMT ---
Discharge Evp Of Products & Co Founder This television writer talked to Payton at [facility]. No beds at this time. If one opens Payton will let me know. This television writer asked DELORIS Knott to get a 3rd choice. Nasreen STEPHENS Airport Skilled Maintenance Supervisor
--- NOTE | 2022-10-31 10:00 | CASEMGMT ---
Discharge Brand Manager [facility] got a bed open. [facility] can accept patient. DELORIS Knott notified. Nasreen STEPHENS Manager Access
[2022-10-31] MEDS: Ibuprofen 600 MG Tablet PO (10:16)
--- NOTE | 2022-10-31 10:23 | CT_ITS ---
STUDY: CT RIGHT FEMUR WITHOUT CONTRAST REASON FOR EXAM: Male, 27 years old. Concern for fracture. RADIATION DOSAGE (If Supplied By Facility): CTDIvol = ( 23.61 ) mGy, DLP = ( 1340.92 ) mGycm TECHNIQUE: Transaxial CT imaging of the femur was performed. Sagittal and coronal images were reconstructed. Individualized dose optimization techniques were used for this CT. COMPARISON: X-rays of the right femur dated October 30, 2022. FINDINGS: Comminuted very minimally displaced fracture of the proximal femur extending from the greater trochanter to the intertrochanteric region. This fracture could not be seen on the prior x-rays. Soft tissue swelling adjacent to the greater trochanteric and lesser trochanteric regions. CT/Extremity Lower without Contra IMPRESSION: Comminuted minimally displaced proximal femoral fracture as described. Adjacent soft tissue swelling. See discussion above. Electronically Signed: Gamal David, at 16:04 EST ,
[2022-10-31 10:30] VITALS: O2SAT 99
--- NOTE | 2022-10-31 12:54 | CASEMGMT ---
Social Work Pt is requiring LOC through [facility] due to Intellectual Delay Diagnosis. SW [facility] to start this process. Pt's is aware that a transfer to [facility] will also be needed to complete the LOC. SW placed call to pt mother, Cassandra, in regards to documentation stating Cassandra is Legal guardian. Cassandra stated could potentially bring this documentation in this afternoon. SW asked if not that Cassandra fax document. Cassandra stated no access to fax. Cassandra stated at latest would have document here tomorrow morning. PLAN: [facility], pending LOC [facility]
[2022-10-31 14:37] VITALS: BP 121/87; PULSE 83; RESP 18; TEMP 36.6; O2SAT 98
[2022-10-31] MEDS: Senna/Docusate Sodium 1 Tablet 2 TABLET PO (17:23)
[2022-10-31 20:00] VITALS: RESP 16
[2022-10-31 21:35] VITALS: BP 130/69; PULSE 93; RESP 15; TEMP 36.3; O2SAT 97
[2022-11-01] VITALS (12 sets, daily range): BP systolic 106–141; BP diastolic 67–92; PULSE 67–88; RESP 12–20; TEMP 35.8–36.8; O2SAT 93–98; BMI 29.0
--- NOTE | 2022-11-01 06:11 | CON.PCM.OR_ITS ---
HPI Consult Data Date of Consult: 11/01/22 HPI Narrative HPI Narrative: GRACE REYNAGA, is a 27 M MRDD w/ cognitive impairment and ADHD, Allergic rhinitis, Diabetes mellitus type II, HTN, Overweight who presents to the [facility] ED on 10/28/22 with history of an unwitnessed fall in the basement while visiting his sister's house. X-rays of the right hip and femur as well as tib-fib date of injury were normal. His inability to ambulate and bear weight prompted a dmission under the service of the hospitalist. Mobilization was attempted with physical therapy. Persistent pain and inability to bear weight prompted a CT scan of the right femur performed on 10/31/2022. CT scan revealed a nondisplaced right intertrochanteric proximal femur fracture. I subsequently consulted for recommendations. At time my examination, patient denied any complaints other than right leg pain. He denies any fevers, chills, nausea or vomiting, chest pain or shortness of breath. [facility] Medical History (Updated 11/01/22 @ 06:[address] Yonatan Tay DO) ADHD Allergic rhinitis Cognitive impairment Deaf Diabetes mellitus, type 2 HTN (hypertension) Hx-hypospadias SHIRLEY (obstructive sleep apnea) Overweight Home Medications Vyvanse 60 mg PO/SL DAILY 07/30/17 [History Last Taken Unknown] multivitamin (Multiple Vitamins tablet) 1 ea PO DAILY 07/30/17 [History Last Taken Unknown] cetirizine 10 mg capsule (Zyrtec) 10 mg PO DAILY 10/01/21 [History Last Taken Unknown] lisinopril 2.5 mg tablet 10 mg PO DAILY 10/01/21 [History Last Taken Unknown] nitrofurantoin macrocrystal 25 mg capsule 50 mg PO DAILY 10/01/21 [History Last Taken Unknown] fenofibrate nanocrystallized 145 mg tablet 145 mg PO DAILY 10/29/22 [History Last Taken Unknown] guanfacine 2 mg tablet,extended release 24 hr 2 mg PO DAILY 10/29/22 [History Last Taken Unknown] Allergy/AdvReac Type Severity Reaction Status Date / Time Penicillins Allergy Mild UNKNOWN Verified 10/28/22 19:13 Family History Mother Pre-diabetes Father Heart disease Diabetes Asthma Surgical History History of genitourinary surgical procedure History of hand surgery Hx of tonsillectomy Myringotomy tube status Social History Smoking Status: Never smoker alcohol intake: never substance use type: does not use ROS ROS Narrative 12 point review systems obtained, negative unless otherwise noted in HPI. Vital Signs Vital Signs Vital Signs: 10/31/22 08:00 10/31/22 14:37 10/31/22 10:30 Temperature 97.7 F L 97.9 F Temperature Source Temporal Oral Pulse Rate 78 83 Respiratory Rate 18 18 Respiratory Effort Respiratory Depth Respiratory Pattern Blood Pressure 131/93 H 121/87 H Blood Pressure Mean 105 98 Blood Pressure Source Monitor Monitor Blood Pressure Position Semi-Fowlers Semi-Fowlers Blood Pressure Location Right Arm Left Arm Pulse Ox 99 98 99 Oxygen Delivery Method Room Air Room Air Room Air 10/31/22 21:35 10/31/22 20:00 11/01/22 02:49 Temperature 97.3 F L 97.8 F Temperature Source Oral Oral Pulse Rate 93 80 Respiratory Rate 15 16 16 Respiratory Effort Normal Non-Labored Respiratory Depth Normal Respiratory Pattern Normal Blood Pressure 130/69 H 135/85 H Blood Pressure Mean 89 101 Blood Pressure Source Monitor Monitor Blood Pressure Position Semi-Fowlers Semi-Fowlers Blood Pressure Location Left Arm Left Arm Pulse Ox 97 97 Oxygen Delivery Method Room Air Room Air Room Air 11/01/22 03:14 Temperature Temperature Source Pulse Rate Respiratory Rate 15 Respiratory Effort Normal Non-Labored Respiratory Depth Normal Respiratory Pattern Normal Blood Pressure Blood Pressure Mean Blood Pressure Source Blood Pressure Position Blood Pressure Location Pulse Ox Oxygen Delivery Method Room Air Weight Weight: 226 lb 6.636 oz Body Mass Index (BMI) 29.0 Physical Exam Narrative General -A&Ox person and place, NAD, appears stated age. Vital signs stable, afebrile. Respiratory -normal work of breathing, no intercostal retractions. CV -pulses regular, brisk capillary refill ?4 limbs. Abdomen-soft, nontender, nondistended. No guarding, rigidity, rebound tenderness . Musculoskeletal/neurologic -full range of motion nontender throughout bilateral upper extremities, left lower extremity with full sensation and strength in all dermatomes and myotomes. No midline cervical tenderness. Right lower extremity-no obvious deformity. Pain with logroll of the right lower extremity. Nontender throughout the right knee femoral shaft, tibial shaft and right foot/ankle. Brisk capillary refill. Sensation intact light touch L3-S1 dermatomes. DF, PF, EHL intact. DP, PT 2+. Pelvis is stable, nontender. Skin is intact without lacerations, abrasions. No ecchymosis noted. Lab / Micro Data Result Diagrams: 10/31/22 04:57 10/31/22 04:57 Radiology Impression Lower Extremity CT 10/31/22 10:23 IMPRESSION: Comminuted minimally displaced proximal femoral fracture as described. Adjacent soft tissue swelling. See discussion above. Electronically Signed: Gamal David, at 16:04 EST , Assessment & Plan Assessment/Plan (1) Intertrochanteric fracture of right femur: PLAN: Patient sustained a nondisplaced right intertrochanteric proximal femur fracture, apparently occult on prior imaging confirmed on CT scan 10/31/2022. -Closed, neurovascularly intact -Isolated injury -Recommending surgical intervention in the form of right femur cephalomedullary nailing -I attempted to contact the patient's parents this morning to obtain consent but was unsuccessful. I will reach back out to the parents later on today to discuss surgical intervention and obtain consent. -Maintenance IV fluids, clear liquid diet after midnight n.p.o. at 2 hours prior to surgery -Type and screen -2 g Ancef on-call to the OR -Bedrest, heel protectors -Plan to proceed with surgery later today when OR becomes available Thank you for this consultation.
[2022-11-01 06:13] LABS: Absolute Lymphocyte Count 2.96 X10^3/uL (0.83-4.51); Absolute Neutrophil Count 6.2 X10^3/uL (2.0-7.7); Basophil# 0.01 X10^3/uL; Basophil% 0.1 % (0-1); Eosinophils% 2.9 % (0-5); Hematocrit 38.4 % (40-54); Hemoglobin 12.8 g/dL (13.0-16.5); Lymphocyte # 2.96 X10^3/ul (0.83-4.51); Lymphocyte % 28.9 % (19-41); Mean Corp Hgb Conc 33.3 g/dL (32-36); Mean Corpuscular Hgb 30.3 pg (27.0-32.0); Mean Platelet Vol. 10.1 fl (6.2-12.0); Monocyte# 0.79 X10^3/uL; Monocyte% 7.7 % (0-10); NRBC Flagged by Analyzer 0 % (0-5); Neutrophil # 6.17 X10^3/uL (2.7-7.7); Neutrophil % 60.2 % (47-70); Platelet Count 334 K/mm3 (150-450); RBC Distribution Width CV 13.5 % (11.6-14.6); RBC Distribution Width SD 45.5 fl (35.1-43.9); Red Blood Count 4.22 M/mm3 (4.6-6.2); White Blood Count 10.3 K/mm3 (4.4-11.0)
[2022-11-01 06:34] LABS: Anion Gap 6 (5-15); BUN 13 mg/dL (7-18); BUN/Creat Ratio 16.6 RATIO (10-20); Calcium,Total 9.4 mg/dL (8.5-10.1); Chloride 106 mmol/L (98-107); Creatinine, Serum 0.78 mg/dL (0.70-1.30); EST Glomerular Filtration Rate 125 mL/min (>60); Est Glom Filt Rate - Afr Amer 151 mL/min (>60); Estimated Creatinine Clearance 163.93 ml/min; Glucose 102 mg/dL (74-106); Potassium 4.4 mmol/L (3.5-5.1); Sodium Level 137 mmol/L (136-145)
[2022-11-01 07:15] LABS: ALB/GLOB Ratio 0.8 RATIO (0.9-2.4); AST(SGOT) 14 U/L (15-37); Alanine Aminotransfer ALT/SGPT 25 U/L (16-61); Albumin, Serum 3.4 g/dL (3.2-5.0); Alkaline Phosphatase 29 U/L (45-117); Anion Gap 6 (5-15); BUN 13 mg/dL (7-18); Calcium,Total 9.1 mg/dL (8.5-10.1); Chloride 108 mmol/L (98-107); Creatinine, Serum 0.87 mg/dL (0.70-1.30); EST Glomerular Filtration Rate 111 mL/min (>60); Est Glom Filt Rate - Afr Amer 134 mL/min (>60); Estimated Creatinine Clearance 146.97 ml/min; Globulin 4.2 g/dL (2.2-4.2); Glucose 105 mg/dL (74-106); Potassium 4.3 mmol/L (3.5-5.1); Protein, Total 7.6 g/dL (6.4-8.2); Sodium Level 139 mmol/L (136-145)
[2022-11-01 07:22] LABS: Hemoglobin A1c 5.4 % (3.8-5.6)
[2022-11-01 08:02] LABS: Vitamin D,25 Hydroxy 19.8 ng/mL
[2022-11-01] MEDS: Arthritis Pain Compound 60 CLICK TUBE TOPICAL ×2 (08:19→22:17)
--- NOTE | 2022-11-01 10:51 | PN.HOSP_ITS ---
Subjective Subjective Reports feeling awesome this morning though CT demostrated femur fracture. Denied other complaints this AM Objective Data Objective Data Vital Signs: Vital Signs Temp Pulse Resp BP Pulse Ox O2 Del Method 98.2 F 76 16 135/92 H 98 Room Air 11/01/22 08:23 11/01/22 08:23 11/01/22 08:23 11/01/22 08:23 11/01/22 08:23 11/01/22 08:23 Oxygen Delivery Method Room Air Weight: 102.7 kg Body Mass Index (BMI) 29.0 Intake & Output: Intake and Output for Last 24 Hours 10/30/22 10/31/22 11/01/22 23:59 23:59 23:59 Intake Total 400 / 400 250 / 250 Output Total 350 / 350 380 / 380 Balance 50 / 50 -130 / -130 Lab / Micro Data Result Diagrams: 11/01/22 05:35 11/01/22 06:40 Labs: Laboratory Results - last 24 hr 11/01/22 05:35: WBC 10.3, RBC 4.22 L, Hgb 12.8 L, Hct 38.4 L, MCV 91.0, MCH 30.3, MCHC 33.3, RDW Std Deviation 45.5 H, RDW Coeff of Ese 13.5, Plt Count 334, MPV 10.1, Immature Gran % (Auto) 0.200, Neut % (Auto) 60.2, Lymph % (Auto) 28.9, [place] % (Auto) 7.7, Eos % (Auto) 2.9, Baso % (Auto) 0.1, Absolute Neuts (auto) 6 .2, Absolute Lymphs (auto) 2.96, Nucleated RBC % 0 11/01/22 05:35: Sodium 137, Potassium 4.4, Chloride 106, Carbon Dioxide 25.0, Anion Gap 6, BUN 13, Creatinine 0.78, Estim Creat Clear Calc 163.93, Est GFR (MDRD) Af Amer 151, Est GFR (MDRD) Non-Af 125, BUN/Creatinine Ratio 16.6, Glucose 102, Calcium 9.4 11/01/22 06:40: Sodium 139, Potassium 4.3, Chloride 108 H, Carbon Dioxide 25.0, Anion Gap 6, BUN 13, Creatinine 0.87, Estim Creat Clear Calc 146.97, Est GFR (MDRD) Af Amer 134, Est GFR (MDRD) Non-Af 111, BUN/Creatinine Ratio 15.0, Glucose 105, Calcium 9.1, Total Bilirubin 0.40, AST 14 L, ALT 25, Alkaline Phosphatase 29 L, Total Protein 7.6, Albumin 3.4, Globulin 4.2, Albumin/Globulin Ratio 0.8 L 11/01/22 06:40: Vitamin D 25-Hydroxy 19.8 11/01/22 06:40: Hemoglobin A1c 5.4 11/01/22 06:40: Blood Type A NEGATIVE, Antibody Screen NEGATIVE Radiography Diagnostic Testing: Radiology Impression Lower Extremity CT 10/31/22 10:23 IMPRESSION: Comminuted minimally displaced proximal femoral fracture as described. Adjacent soft tissue swelling. See discussion above. Electronically Signed: Gamal David, at 16:04 EST , Physical Exam Const alert and no apparent distress HEENT head/scalp atraumatic Eyes Eyes Narrative: EOM grossly intact, anicteric Neck supple Resp normal respiratory effort Cardio regular rate GI non-distended Extremity Extremity Narrative: moving extremities in bed Neuro Neuro Narrative: No overt focal deficits appreciated, moving extremities in bed Psych Psych Narrative: Cooperative this morning Assessment & Plan Assessment/Plan (1) Contusion of right thigh, initial encounter: PLAN: Plan #Right anterior thigh pain after mechanical fall X-ray in ED unremarkable Physical therapy recommending long-term placement Will repeat x-ray in the a.m. in the event early x-ray was false negative Will need to discuss with family about dispo Pain control 10/30: Pain reports are inconsistent but still reluctant to bear weight on this, repeat x-ray pending. May need further imaging or Ortho eval depending on how he does today and results of the imaging. Continue Tylenol and ibuprofen, if needs further pain control can always escalate this. Discussed with his mother. Will likely need placement for some duration of time if he is still unable to bear weight 10/31: X-ray with no fracture, can consider further imaging but he reported his leg was feeling fine this morning and he was moving it, will assess how he works with physical therapy to assess if he can go home versus placement. 11/01: CT showed femur fracture, Ortho consulted. Likely surgery this evening. #Intellectual disability, autism, ADHD Supportive care #Hypertension Continue home lisinopril Charges/Coding Visit Charges OBSV E&M: 76143 Subsequent observation care L2
[2022-11-01] MEDS: Lactated Ringers 1,000 ML 15 ML IV ×2 (11:50→17:50)
--- NOTE | 2022-11-01 12:07 | NURSING ---
Spoke with Cassandra nieto Mother on the phone. Advised patient will be debby to surgery today. Mother will be coming in.
[2022-11-01] MEDS: Cefazolin 2 GM in 0.9% Normal Saline 100 ML IV (16:02)
--- NOTE | 2022-11-01 16:10 | RAD_ITS ---
STUDY: X-RAY - PELVIS AND RIGHT HIP REASON FOR EXAM: Male, 27 years old patient with open reduction internal fixation of intertrochanteric femoral fracture. TECHNIQUE: 6 views of the pelvis and hip were obtained during open reduction internal fixation of a femoral fracture. COMPARISON: A CT of the right hip dated October 31, 2022. FINDINGS: Serial spot images reveal interval placement of intramedullary nail and locking screw within the femoral diaphysis and femoral neck, respectively. RAD/Hip Min 2 Views (Portable) IMPRESSION: Spot images documenting open reduction internal fixation of an intertrochanteric right femoral fracture. Electronically Signed: Fawn Bailey MD at 4:49 EST ,
[2022-11-01] MEDS: Thrombin 5,000 IU Kit (PSA) 5,000 IU Vial 5000 IU TOPICAL (17:20)
[2022-11-01] MEDS: Bupiv/Epi 0.5% Mpf 30 ML Vial (17:32)
--- NOTE | 2022-11-01 20:28 | NURSING ---
Dsg saturated upon return to unit from PACU, dsg changed per surgeon's order, 4x4 and abd applied. Will monitor for continued bleeding and notify the surgeon.
[2022-11-01] MEDS: Acetaminophen 325 MG Tablet 650 MG PO (22:19)
--- NOTE | 2022-11-01 22:30 | NURSING ---
Under emergency charting.
--- NOTE | 2022-11-01 23:05 | OP.PCM_ITS ---
Report of Operation Date of Procedure: 11/01/22 Description of Surgical Findings:: Preoperative diagnosis: Right intertrochanteric proximal femur fracture Postoperative diagnosis: Right intertrochanteric proximal femur fracture Procedure: Treatment of intertrochanteric hip fracture with intramedullary nail right femur Surgeon: Yonatan Tay DO Anesthesia: General endotracheal Anesthesiologist: Dr. Salgado Complications: None apparent Drains: None Estimated blood loss: 300 cc Urinary output: None recorded IV fluids: Per anesthesia record Specimens: None Surgical implants: Sina Gamma3 Cephalomedullary Nail 125 degree 11 mm x 180 mm right, 10.5 mm x 105 mm lag screw, Interlocking screw size 5 mm x 35 mm Surgical indications: This is a 27-year-old male with past medical history significant for MRDD who sustained an unwitnessed fall onto his right side 10/28/2022. He was unable to bear weight. He was brought to [facility] emergency department where x-rays were negative of his right femur and tib-fib. He was subsequently admitted for inability to ambulate. Over the next several days he was unable to progress with therapy. CT scan was obtained 10/31/2022 demonstrated a nondisplaced right intertrochanteric proximal femur fracture. I was subsequently consulted. I recommend surgical intervention in the form of right femur cephalomedullary nailing. I discussed the surgery with the patient's parents. I discussed the risk, benefits, alternatives. The risks of the surgery included bleeding, infection, loss of life or limb, malunion, nonunion, damage to vital structures, neurovascular injury, failure of orthopedic hardware, need for additional surgery, persistent pain or disability, risk of anesthesia. The patient's parents expressed understanding of these risks and agreed to proceed with surgery. Description of procedure: Patient was seen in preoperative holding area. He was identified by name, medical record number, date of . The operative extremity was marked with a surgical marker. We confirmed informed consent with the patient and questions were answered to his family's satisfaction. Patient was brought to the operative suite, and general anesthesia was induced on his hospital bed. Endotracheal tube was secured. After adequate anesthesia, patient was transferred to a fracture table with all bony prominences being well-padded. A perineal post was placed to secure the patient on the table. We then applied a ski boot which was well-padded to the operative extremity. The well leg was dropped into extension and secured to the axial post of the fracture table with a pillow and Coban. The right arm was brought across p atient's chest with a blanket on his chest. We then performed a closed reduction maneuver with external rotation, traction, internal rotation and adduction. Fluoroscopic images were obtained. Fracture appeared to be anatomically reduced following closed reduction. We then prepped and draped the right lower extremity in normal, sterile orthopedic fashion. A timeout was performed with all parties in attendance in agreement with the side, site, and operation be performed. 2 g Ancef was administered prior to incision. No concerns were voiced and we elected to proceed. I first used fluoroscopy to gordon the level of the fracture and planned incision for insertion of the cephalomedullary nail device. In line with the long axis of the femur, 4 fingerbreadths proximal to the tip of the greater trochanter, a full-thickness skin incision was planned.. Skin was sharply incised with 10 blade scalpel, carried into the subcutaneous tissues. The IT band was encountered and split and planned trajectory of the nail placement. The greater trochanter was then able to be palpated digitally. I then placed a threaded guidewire just medial to the tip of the greater trochanter and in the anterior third of it on the lateral. Opening reamer was utilized over top of the troponin to gain access to the femoral canal. Reamer was carried down to the level of the lesser trochanter. We selected the nail to be 18 cm x 11 mm diameter. Reamer was removed. Nail was assembled on the back table. I placed this by hand utilizing the targeting jig and impacted. I encountered significant resistance during impaction. Fluoroscopy of the mid femur revealed significant narrowing of the femoral isthmus. I withdrew the nail. I placed a ball-tipped guidewire down the femoral canal. I sequentially reamed to a final diameter of 12.5 mm for safe nail passage. The nail was then placed over top of the ball-tipped guidewire and impacted to appropriate depth. Rotation was confirmed on the lateral. Drill sleeve was placed through the targeting guide. I sharply incised the lateral skin and IT band We drilled the pin for the lag screw at an appropriate position and depth, tip to apex distance less than 25 mm on AP and lateral combined. Depth gauge was used to measure the length of the screw, 105 mm. We then used the cannulated drill to drill to an appropriate depth. Drill was removed, drill pin left in place. Lag screw was placed over top of the drill pin and tightened to an appropriate depth. Setscrew was then placed and tightened, and then turned back a quarter turn to allow the lag screw to slide. I then drilled for a dynamic interlocking screw in the distal portion of the screw utilizing the outrigger. Skin was incised full-thickness down the level of the IT band which was also split in line with the skin incision. I drilled bicortically through the distal interlocking slot of the nail. I measured for a 35 mm interlocking screw which was placed by hand with excellent purchase. Instruments were removed as well as the outrigger for the nail. Final fluoroscopic images were obtained at the hip. During closure, significant bleeding was noted from the leg screw incision. I packed the wound with a lap sponge. After 5 minutes, sponge was removed and bleeding was again noted. There is no pulsatile bleeding noted. I extended the incision to explore. No obvious bleeders were identified. I proceeded to pack the wound with Gelfoam and thrombin. I also injected 30 cc of 0.25% bupivacaine with epinephrine 1: 200,000. Hemostasis was improved. Gelfoam was removed. I closed the IT band with [id number] 0 Vicryl suture. 1 g IV TXA was also administered to assist with hemostasis. We irrigated the wounds copiously with normal saline solution. We then closed the deeper layers, IT band with 0 Vicryl. Intradermal buried stitches of 2-0 Vicryl were utilized and skin finally reapproximated with skin jelena. Sterile compression dressing of Xeroform, 4 x 4's, and Tegaderm was applied. Patient tolerated procedure well without complication. He was transferred back to his hospital bed and subsequently to PACU in stable condition. Intraoperative medications: 2 g Ancef IV Post Operative Plan: Weightbearing: Weightbearing as tolerated right lower extremity with a walker Antibiotics: Ancef 2 g x 3 doses postoperatively, 1 dose given preoperatively DVT Prophylaxis: Lovenox 40 mg subcutaneously daily to start postoperative day #1 and continued x28 days postoperatively Asencio: None Dressing: Dry sterile dressing changes daily and as needed for saturation X-Rays: 2 weeks postop in the office Follow-up: 2 weeks post-operatively with me in the office
[2022-11-02] VITALS (8 sets, daily range): BP systolic 104–154; BP diastolic 61–94; PULSE 85–96; RESP 14–18; TEMP 36.6–37.4; O2SAT 95–100
[2022-11-02] MEDS: Acetaminophen 325 MG Tablet 650 MG PO ×2 (04:12→12:27)
[2022-11-02 05:01] LABS: Absolute Lymphocyte Count 1.93 X10^3/uL (0.83-4.51); Absolute Neutrophil Count 11.5 X10^3/uL (2.0-7.7); Basophil# 0.01 X10^3/uL; Basophil% 0.1 % (0-1); Hematocrit 29.9 % (40-54); Hemoglobin 9.7 g/dL (13.0-16.5); Lymphocyte # 1.93 X10^3/ul (0.83-4.51); Lymphocyte % 13.5 % (19-41); Mean Corp Hgb Conc 32.4 g/dL (32-36); Mean Corpuscular Hgb 29.3 pg (27.0-32.0); Mean Corpuscular Volume 90.3 fL (80-94); Mean Platelet Vol. 10.3 fl (6.2-12.0); Monocyte% 5.6 % (0-10); NRBC Flagged by Analyzer 0 % (0-5); Neutrophil # 11.47 X10^3/uL (2.7-7.7); Neutrophil % 80.3 % (47-70); Platelet Count 345 K/mm3 (150-450); RBC Distribution Width SD 43.2 fl (35.1-43.9); Red Blood Count 3.31 M/mm3 (4.6-6.2); White Blood Count 14.3 K/mm3 (4.4-11.0)
[2022-11-02 05:30] LABS: ALB/GLOB Ratio 0.8 RATIO (0.9-2.4); AST(SGOT) 11 U/L (15-37); Alanine Aminotransfer ALT/SGPT 23 U/L (16-61); Alkaline Phosphatase 27 U/L (45-117); Anion Gap 6 (5-15); BUN 15 mg/dL (7-18); BUN/Creat Ratio 18.9 RATIO (10-20); Calcium,Total 8.4 mg/dL (8.5-10.1); Chloride 102 mmol/L (98-107); Creatinine, Serum 0.79 mg/dL (0.70-1.30); EST Glomerular Filtration Rate 123 mL/min (>60); Est Glom Filt Rate - Afr Amer 149 mL/min (>60); Estimated Creatinine Clearance 161.86 ml/min; Globulin 3.6 g/dL (2.2-4.2); Glucose 122 mg/dL (74-106); Potassium 4.5 mmol/L (3.5-5.1); Protein, Total 6.6 g/dL (6.4-8.2); Sodium Level 134 mmol/L (136-145)
--- NOTE | 2022-11-02 07:49 | PCM.PN.ORT ---
Subjective Subjective Patient seen and examined. Denies any new complaints. Denies significant pain. Denies fevers, chills, nausea vomiting, chest pain or shortness of breath. Objective Data Objective Data Vital Signs: Vital Signs Temp Pulse Resp BP Pulse Ox O2 Del Method O2 Flow Rate 99.4 F H 89 16 138/94 H 96 Room Air 4 11/02/22 04:07 11/02/22 04:07 11/02/22 04:07 11/02/22 04:07 11/02/22 04:07 11/02/22 04:07 11/01/22 19:00 Oxygen Flow Rate (L/min) 4 Oxygen Delivery Method Room Air Weight: 226 lb 6.636 oz Body Mass Index (BMI) 29.0 Intake & Output: Intake and Output for Last 24 Hours 10/31/22 11/01/22 11/02/22 23:59 23:59 23:59 Intake Total 250 / 250 1220 / 1220 186.5 / 186.5 Output Total 380 / 380 700 / 700 Balance -130 / -130 1220 / 1220 -513.5 / -513.5 Lab / Micro Data Result Diagrams: 11/02/22 04:30 11/02/22 04:30 Labs: Laboratory Results - last 24 hr 11/01/22 06:40: Vitamin D 25-Hydroxy 19.8 11/01/22 06:40: Blood Type A NEGATIVE, Antibody Screen NEGATIVE 11/02/22 04:30: WBC 14.3 H, RBC 3.31 L, Hgb 9.7 L, Hct 29.9 L, MCV 90.3, MCH 29.3, MCHC 32.4, RDW Std Deviation 43.2, RDW Coeff of Ese 13.0, Plt Count 345, MPV 10.3, Immature Gran % (Auto) 0.500, Neut % (Auto) 80.3 H, Lymph % (Auto) 13.5 L, [place] % (Auto) 5.6, Eos % (Auto) 0.0, Baso % (Auto) 0.1, Absolute Neuts (auto) 11.5 H, Absolute Lymphs (auto) 1.93, Nucleated RBC % 0 11/02/22 04:30: Sodium 134 L, Potassium 4.5, Chloride 102, Carbon Dioxide 26.0, Anion Gap 6, BUN 15, Creatinine 0.79, Estim Creat Clear Calc 161.86, Est GFR (MDRD) Af Amer 149, Est GFR (MDRD) Non-Af 123, BUN/Creatinine Ratio 18.9, Glucose 122 H, Calcium 8.4 L, Total Bilirubin 0.40, AST 11 L, ALT 23, Alkaline Phosphatase 27 L, Total Protein 6.6, Albumin 3.0 L, Globulin 3.6, Albumin/Globulin Ratio 0.8 L Radiography Diagnostic Testing: Radiology Impression Hip X-Ray 11/01/22 16:10 IMPRESSION: Spot images documenting open reduction internal fixation of an intertrochanteric right femoral fracture. Electronically Signed: Fawn Bailey MD at 4:49 EST Reading Location ID and State: [facility] / [place] , Service support , Physical Exam Narrative General - A&Ox3, NAD. VSS/AF Right lower extremity -incisional dressing reinforced. Compartments soft and compressible. Appropriate swelling. SILT Sural, Saphenous, SPN, DPN, Tibial N. distributions. DP, PT 2+. BCR. DF, PF, EHL 5/5. No calf TTP. Assessment & Plan Assessment/Plan (1) Intertrochanteric fracture of right femur: PLAN: POD#1 s/p right femur CMN - acute blood loss anemia secondary to surgery with some delusional component likely. No indication for transfusion from my standpoint. -Nathalie dressing changes right lower extremity - Pain control - Medicine following for medical management - PT/OT-weightbearing as tolerated right lower extremity - DVT PPX -Lovenox 40 mg subcutaneously daily, Yudith, JONES marquez - Case management - D/C planning
[2022-11-02] MEDS: Arthritis Pain Compound 60 CLICK TUBE TOPICAL ×2 (08:56→21:05)
[2022-11-02] MEDS: Fenofibrate 145 MG Tablet PO (08:57)
[2022-11-02] MEDS: Loratadine 10 MG Tablet PO (08:57)
[2022-11-02] MEDS: Nitrofurantoin Macrocrystals 100 MG Capsule PO (08:57)
[2022-11-02] MEDS: Multivitamins,Therapeutic Tablet 1 TABLET PO (08:57)
[2022-11-02] MEDS: Lisinopril 10 MG Tablet PO (08:57)
[2022-11-02] MEDS: Ibuprofen 600 MG Tablet PO ×2 (09:00→19:26)
[2022-11-02] MEDS: Calcium Carbonate 500 MG Tablet PO ×2 (09:00→12:28)
--- NOTE | 2022-11-02 10:36 | PCM.TXEXTCAR ---
Diet Diet Order/Speech Therapy: 10/28/22 22:52 Diet: Consistent Carb - Calorie Controlled Food consistency:: Regular Liquid Consistency:: Regular/Thin How many daily calories?: 1800 calorie Routine Orders/Code Status Suppository Type: Dulcolax 10mg Suppository Frequency: Daily PRN Wound(s) RIGHT HIP: Wound Type: Surgical Incision Therapies Weight Bearing: Weight bearing as tolerated Physical Therapy: Eval and Treat Occupational Therapy: Eval and Treat Problem/Diagnosis (1) Intertrochanteric fracture of right femur: Status: Acute Code(s): S72.141A - Displaced intertrochanteric fracture of right femur, initial encounter for closed fracture Plan #Right anterior thigh pain after mechanical fall secondary to comminuted minimally displaced proximal femur fracture #Intellectual disability, autism, ADHD #Hypertension 27-year-old male with a history of intellectual disability and ADHD, hypertension who presented to [facility] 10/28/2022 after an unwitnessed mechanical fall in the basement while visiting sister's house with onset of immediate mid to distal right thigh discomfort and inability bear weight. X-ray was negative but given his difficulty ambulating he was admitted for evaluation possible placement. Repeat x-ray obtained in the event that earlier x-ray was negative and this was negative however after discussing with mother and him continuing to not bear weight with physical therapy CT was obtained which showed a comminuted minimally displaced proximal femur fracture. He was taken to the OR 11/02 for surgical intervention in the form of right femur cephalomedullary nailing. Recommendations are weightbearing as tolerated with right lower extremity with a walker, Lovenox 40 mg subcu daily for 28 days postoperatively. Dry sterile dressing changes daily and as needed for saturation, will need an x-ray 2 weeks postop and a follow-up [address] Tay in the office with orthopedics. Allergies/Procedures Done in Hospital Allergies Penicillins Allergy (Mild, Verified 10/28/22 19:13) UNKNOWN Procedures: 2-D Echocardiogram Type of Care/Length of Stay Estimated LOS: Convalescent Care Less Than 30 days Type of Care Needed: Skilled Rehab Potential: Good Prognosis: Good Additional Orders/Day of Discharge Day of Discharge: 11/02/22 Discharge Plan Admission Admit Date/Time: 10/31/22 10:23 Primary Reason for Your Visit: left thigh pain Attending Provider: Cece Bazzi Primary Care Provider: Nestor Holly Consulting Providers: Vanessa Grewal ; Yonatan Tay Instructions Patient Instructions: ED Fall Prevention Additional Instructions / Restrictions: Weightbearing: Weightbearing as tolerated right lower extremity with a walker DVT Prophylaxis: Lovenox 40 mg subcutaneously daily to start postoperative day #1 and continued x28 days postoperatively Dressing: Dry sterile dressing changes daily and as needed for saturation X-Rays: 2 weeks postop in the office Follow-up: 2 weeks post-operatively with Dr. Tay in the office Discharge Orders/Prescriptions Prescriptions: New ibuprofen 600 mg Tablet 600 mg PO Q8H PRN PRN (Reason: Pain 6-10) Qty: 0 0RF acetaminophen [Tylenol] 325 mg Tablet 650 mg PO Q4H PRN PRN (Reason: Fever, pain 1-08/13) Qty: 0 0RF enoxaparin 40 mg/0.4 mL Syringe 40 mg subcut DAILY@0600 27 Days Qty: 0 0RF Continued lisinopril 2.5 mg tablet 10 mg PO DAILY nitrofurantoin macrocrystal 25 mg capsule 50 mg PO DAILY Rx Instructions: must administer with a meal/food Zyrtec 10 mg capsule 10 mg PO DAILY multivitamin [Multiple Vitamins] 1 EACH tablet 1 ea PO DAILY Vyvanse 60 mg PO/SL DAILY guanfacine 2 mg Tablet Extended Release 24 Hr 2 mg PO DAILY fenofibrate nanocrystallized 145 mg Tablet 145 mg PO DAILY Referrals / Follow Up: Nestor Holly DO [Primary Care Provider] - Within 1 Week Yonatan Tay DO [Med Staff - Active Staff] - Within 2 Weeks
--- NOTE | 2022-11-02 11:16 | CASEMGMT ---
Addendum entered by Hedy Allen 11/02/22 13:33: DELORIS met with pt mother, Cassandra, to update about discharge plan. DELORIS explained need for LOC completion before pt can discharge. Cassandra voiced understanding and is aware it could be sometime before LOC is received due to short staffing at [facility]. BJ Barahona Original Note: Social Work SW emailed LOC requested to [facility]. SW then called [facility] to confirmed email had been received. DELORIS was informed that two workers that review and complete LOC requests are not available at this time. DELORIS informed [facility] worker on the phone that patient is medically ready for discharge today. The worker unable to confirm if LOC will be complete this day. SW will wait for LOC to be returned. PLAN: [facility], when LOC is received. BJ Barahona
[2022-11-02] MEDS: Enoxaparin 40 MG/0.4 ML Syringe SC (12:26)
--- NOTE | 2022-11-02 16:08 | CASEMGMT ---
Social Work SW notified by Dr. Bazzi that pt incision site is warm to touch and Dr. Bazzi planning to keep pt one more night to ensure no infection is occuring. SW notified [facility] of news via [employer]. SW also send LOC document to [facility] [place] via [employer] and informed pt should d/c and admit to their facility tomorrow. PLAN: [facility], when medically ready- anticipated 11/03 BJ Barahona
--- NOTE | 2022-11-02 16:13 | PN.HOSP_ITS ---
Subjective Subjective Doing well today, has some pain in his right leg but overall says he feels better Objective Data Objective Data Vital Signs: Vital Signs Temp Pulse Resp BP Pulse Ox O2 Del Method O2 Flow Rate 97.9 F 88 14 140/91 H 97 Room Air 4 11/02/22 08:54 11/02/22 08:54 11/02/22 08:54 11/02/22 08:54 11/02/22 09:35 11/02/22 09:00 11/01/22 19:00 Oxygen Flow Rate (L/min) 4 Oxygen Delivery Method Room Air Weight: 102.7 kg Body Mass Index (BMI) 29.0 Intake & Output: Intake and Output for Last 24 Hours 10/31/22 11/01/22 11/02/22 23:59 23:59 23:59 Intake Total 250 / 250 1220 / 1220 186.5 / 186.5 Output Total 380 / 380 1000 / 1000 Balance -130 / -130 1220 / 1220 -813.5 / -813.5 Lab / Micro Data Result Diagrams: 11/02/22 04:30 11/02/22 04:30 Labs: Laboratory Results - last 24 hr 11/02/22 04:30: WBC 14.3 H, RBC 3.31 L, Hgb 9.7 L, Hct 29.9 L, MCV 90.3, MCH 29.3, MCHC 32.4, RDW Std Deviation 43.2, RDW Coeff of Ese 13.0, Plt Count 345, MPV 10.3, Immature Gran % (Auto) 0.500, Neut % (Auto) 80.3 H, Lymph % (Auto) 13.5 L, [place] % (Auto) 5.6, Eos % (Auto) 0.0, Baso % (Auto) 0.1, Absolute Neuts (auto) 11.5 H, Absolute Lymphs (auto) 1.93, Nucleated RBC % 0 11/02/22 04:30: Sodium 134 L, Potassium 4.5, Chloride 102, Carbon Dioxide 26.0, Anion Gap 6, BUN 15, Creatinine 0.79, Estim Creat Clear Calc 161.86, Est GFR (MDRD) Af Amer 149, Est GFR (MDRD) Non-Af 123, BUN/Creatinine Ratio 18.9, Glucose 122 H, Calcium 8.4 L, Total Bilirubin 0.40, AST 11 L, ALT 23, Alkaline Phosphatase 27 L, Total Protein 6.6, Albumin 3.0 L, Globulin 3.6, Albumin/Globulin Ratio 0.8 L Radiography Diagnostic Testing: Radiology Impression Hip X-Ray 11/01/22 16:10 IMPRESSION: Spot images documenting open reduction internal fixation of an intertrochanteric right femoral fracture. Electronically Signed: Fawn Bailey MD at 4:49 EST Reading Location ID and State: [facility] / [place] , Service support , Physical Exam Const alert and no apparent distress HEENT head/scalp atraumatic Eyes Eyes Narrative: EOM grossly intact, anicteric Neck supple Resp normal respiratory effort Cardio regular rate GI non-distended Extremity Extremity Narrative: Sitting up in chair with extremities extended, mild warmth on right leg, no tension, no significant tenderness on palp Neuro Neuro Narrative: No overt focal deficits appreciated, moving extremities in bed Psych Psych Narrative: Cooperative this morning Assessment & Plan Assessment/Plan (1) Contusion of right thigh, initial encounter: PLAN: Plan #Right anterior thigh pain after mechanical fall?left femur fracture X-ray in ED unremarkable Physical therapy recommending long-term placement Will repeat x-ray in the a.m. in the event early x-ray was false negative Will need to discuss with family about dispo Pain control 10/30: Pain reports are inconsistent but still reluctant to bear weight on this, repeat x-ray pending. May need further imaging or Ortho eval depending on how he does today and results of the imaging. Continue Tylenol and ibuprofen, if needs further pain control can always escalate this. Discussed with his mother. Will likely need placement for some duration of time if he is still unable to bear weight 10/31: X-ray with no fracture, can consider further imaging but he reported his leg was feeling fine this morning and he was moving it, will assess how he works with physical therapy to assess if he can go home versus placement. 11/01: CT showed femur fracture, Ortho consulted. Likely surgery this evening. 11/02: Had right femur CMN on 11/01. Did have some bleeding, presently leg is not tense and not significantly painful. On Lovenox 40 subcu daily. If hemoglobin stable tomorrow and approved by Ortho can likely go to rehab facility #Intellectual disability, autism, ADHD Supportive care #Hypertension Continue home lisinopril Charges/Coding Visit Charges Inpatient E&M: 95915 Subs Hosp L2
[2022-11-03] VITALS (7 sets, daily range): BP systolic 113–139; BP diastolic 63–69; PULSE 81–96; RESP 18–20; TEMP 36.9–37.2; O2SAT 94–98
[2022-11-03] MEDS: Ibuprofen 600 MG Tablet PO ×2 (06:26→15:35)
[2022-11-03] MEDS: Enoxaparin 40 MG/0.4 ML Syringe SC (06:26)
[2022-11-03] MEDS: 0.9% Saline Lock 10 ML Syringe IV (06:26)
[2022-11-03 06:40] LABS: Absolute Lymphocyte Count 3.03 X10^3/uL (0.83-4.51); Absolute Neutrophil Count 7.1 X10^3/uL (2.0-7.7); Basophil# 0.02 X10^3/uL; Basophil% 0.2 % (0-1); Eosinophil# 0.11 X10^3/uL; Hematocrit 26.1 % (40-54); Hemoglobin 8.4 g/dL (13.0-16.5); Lymphocyte # 3.03 X10^3/ul (0.83-4.51); Lymphocyte % 26.7 % (19-41); Mean Corp Hgb Conc 32.2 g/dL (32-36); Mean Corpuscular Hgb 29.4 pg (27.0-32.0); Mean Corpuscular Volume 91.3 fL (80-94); Mean Platelet Vol. 10.4 fl (6.2-12.0); Monocyte# 1.06 X10^3/uL; Monocyte% 9.4 % (0-10); NRBC Flagged by Analyzer 0.2 % (0-5); Neutrophil # 7.08 X10^3/uL (2.7-7.7); Neutrophil % 62.4 % (47-70); Platelet Count 323 K/mm3 (150-450); RBC Distribution Width CV 13.4 % (11.6-14.6); RBC Distribution Width SD 44.2 fl (35.1-43.9); Red Blood Count 2.86 M/mm3 (4.6-6.2); White Blood Count 11.3 K/mm3 (4.4-11.0)
[2022-11-03 07:04] LABS: Anion Gap 3 (5-15); BUN 17 mg/dL (7-18); BUN/Creat Ratio 23.3 RATIO (10-20); Calcium,Total 8.5 mg/dL (8.5-10.1); Chloride 105 mmol/L (98-107); Creatinine, Serum 0.73 mg/dL (0.70-1.30); EST Glomerular Filtration Rate 135 mL/min (>60); Est Glom Filt Rate - Afr Amer 164 mL/min (>60); Estimated Creatinine Clearance 175.16 ml/min; Glucose 110 mg/dL (74-106); Potassium 3.9 mmol/L (3.5-5.1); Sodium Level 137 mmol/L (136-145)
[2022-11-03] MEDS: Calcium Carbonate 500 MG Tablet PO ×3 (09:30→17:01)
[2022-11-03] MEDS: Arthritis Pain Compound 60 CLICK TUBE TOPICAL (09:30)
[2022-11-03] MEDS: Multivitamins,Therapeutic Tablet 1 TABLET PO (09:31)
[2022-11-03] MEDS: Lisinopril 10 MG Tablet PO (09:31)
[2022-11-03] MEDS: Fenofibrate 145 MG Tablet PO (09:31)
[2022-11-03] MEDS: Loratadine 10 MG Tablet PO (09:31)
[2022-11-03] MEDS: Nitrofurantoin Macrocrystals 100 MG Capsule PO (09:31)
[2022-11-03 12:14] LABS: Hematocrit 25.9 % (40-54); Hemoglobin 8.7 g/dL (13.0-16.5); Mean Corp Hgb Conc 33.6 g/dL (32-36); Mean Corpuscular Hgb 30.6 pg (27.0-32.0); Mean Corpuscular Volume 91.2 fL (80-94); Mean Platelet Vol. 10.4 fl (6.2-12.0); Platelet Count 318 K/mm3 (150-450); RBC Distribution Width CV 13.4 % (11.6-14.6); RBC Distribution Width SD 45.1 fl (35.1-43.9); Red Blood Count 2.84 M/mm3 (4.6-6.2)
[2022-11-03] MEDS: Acetaminophen 325 MG Tablet 650 MG PO ×2 (12:43→17:01)
--- NOTE | 2022-11-03 13:26 | PN.ORTHO_ITS ---
Subjective Subjective Patient seen and examined. Patient up with therapy today was able to take few steps and bear weight on his right lower extremity. He denies any complaints at this time. I spoke with family at bedside. Objective Data Objective Data Vital Signs: Vital Signs Temp Pulse Resp BP Pulse Ox O2 Del Method O2 Flow Rate 99 F 96 18 127/67 H 98 Room Air 4 11/03/22 12:00 11/03/22 12:00 11/03/22 12:00 11/03/22 12:00 11/03/22 12:00 11/03/22 12:00 11/01/22 19:00 Oxygen Flow Rate (L/min) 4 Oxygen Delivery Method Room Air Weight: 226 lb 6.636 oz Body Mass Index (BMI) 29.0 Intake & Output: Intake and Output for Last 24 Hours 11/01/22 11/02/22 11/03/22 23:59 23:59 23:59 Intake Total 1220 / 1220 186.5 / 186.5 Output Total 1600 / 1600 Balance 1220 / 1220 -1413.5 / -1413.5 Lab / Micro Data Result Diagrams: 11/03/22 11:50 11/03/22 06:16 Labs: Laboratory Results - last 24 hr 11/03/22 06:16: WBC 11.3 H, RBC 2.86 L, Hgb 8.4 L, Hct 26.1 L, MCV 91.3, MCH 29.4, MCHC 32.2, RDW Std Deviation 44.2 H, RDW Coeff of Ese 13.4, Plt Count 323, MPV 10.4, Immature Gran % (Auto) 0.300, Neut % (Auto) 62.4, Lymph % (Auto) 26.7, [place] % (Auto) 9.4, Eos % (Auto) 1.0, Baso % (Auto) 0.2, Absolute Neuts (auto) 7.1, Absolute Lymphs (auto) 3.03, Nucleated RBC % 0.2 11/03/22 06:16: Sodium 137, Potassium 3.9, Chloride 105, Carbon Dioxide 29.0, Anion Gap 3 L, BUN 17, Creatinine 0.73, Estim Creat Clear Calc 175.16, Est GFR (MDRD) Af Amer 164, Est GFR (MDRD) Non-Af 135, BUN/Creatinine Ratio 23.3 H, Glucose 110 H, Calcium 8.5 11/03/22 11:50: WBC 10.0, RBC 2.84 L, Hgb 8.7 L, Hct 25.9 L, MCV 91.2, MCH 30.6, MCHC 33.6, RDW Std Deviation 45.1 H, RDW Coeff of Ese 13.4, Plt Count 318, MPV 10.4 Radiography Diagnostic Testing: Radiology Impression Hip X-Ray 11/01/22 16:10 IMPRESSION: Spot images documenting open reduction internal fixation of an intertrochanteric right femoral fracture. Electronically Signed: Fawn Bailey MD at 4:49 EST Reading Location ID and State: [facility] / [place] , Service support , Physical Exam Narrative General - A&Ox person and place, NAD. VSS/AF Right lower extremity -incisional dressing clean dry and intact compartments soft and compressible. Appropriate swelling. No ecchymosis noted. SILT Felix al, Saphenous, SPN, DPN, Tibial N. distributions. DP, PT 2+. BCR. DF, PF, EHL 5/5. No calf TTP. Assessment & Plan Assessment/Plan (1) Intertrochanteric fracture of right femur: PLAN: POD#2 s/p right femur CMN -Hemoglobin dropped overnight to 8.4, recheck at noon today revealed hemoglobin of 8.7. No evidence of active bleeding on exam today. -Dry sterile dressing changes right lower extremity - Pain control - Medicine following for medical management - PT/OT - weightbearing as tolerated right lower extremity - DVT PPX -Lovenox 40 mg subcutaneously daily, JONES Zurita - Case management - D/C planning - Stable for discharge to group home facility from my standpoint today. Would recommend rechecking H&H in the next 48 hours. Follow-up in 2 weeks for staple removal and x-rays. Dry sterile dressing changes daily. Continue Lovenox upon discharge x28 days postoperatively.
--- NOTE | 2022-11-03 15:46 | PCM.TXEXTCAR ---
Diet Diet Order/Speech Therapy: 10/28/22 22:52 Diet: Consistent Carb - Calorie Controlled Food consistency:: Regular Liquid Consistency:: Regular/Thin How many daily calories?: 2200 calorie Routine Orders/Code Status Suppository Type: Dulcolax 10mg Suppository Frequency: Daily PRN Routine Lab Work: CBC (Within 48 hours) Wound(s) RIGHT HIP: Wound Type: Surgical Incision Therapies Weight Bearing: Weight bearing as tolerated Physical Therapy: Eval and Treat Occupational Therapy: Eval and Treat Problem/Diagnosis (1) Intertrochanteric fracture of right femur: Status: Acute Code(s): S72.141A - Displaced intertrochanteric fracture of right femur, initial encounter for closed fracture Plan #Right anterior thigh pain after mechanical fall?left femur fracture #Intellectual disability, autism, ADHD #Hypertension 27-year-old male with a history of intellectual disability, ADHD, hypertension who presented to [facility] 10/28/2022 with an unwitnessed fall in the basement while visiting his sister's house with onset of immediate distal right thigh discomfort and inability to bear weight. On arrival to the emergency department x-ray of the femur as well as tibia and fibula had no acute findings but due to his inability to bear weight he was admitted as his mother could not care for him at home. He continued to complain of pain though it was somewhat inconsistent, repeat x-ray was negative however due to high clinical suspicion CT obtained. This showed left proximal femur fracture and he was taken to the OR on 11/01 for treatment of intertrochanteric hip fracture with intramedullary nail in the right femur. He did have some blood loss after surgery that was treated. Did have slight drop in hemoglobin the next day but then this stabilized, pain improving, beginning to bear weight though slowly, not tense. Cleared for transfer to rehab by orthopedic surgery. Will need Lovenox 40 mg subcutaneous daily starting 11/02 and continued for 28 days, needs a CBC within 48 hours. Will need x-rays in 2 weeks in the office with Dr. Tay and needs to follow-up in 2 weeks postop with him as well. Weightbearing as tolerated on the right lower extremity with a walker. Allergies/Procedures Done in Hospital Allergies Penicillins Allergy (Mild, Verified 10/28/22 19:13) UNKNOWN Procedures: 2-D Echocardiogram Type of Care/Length of Stay Estimated LOS: Convalescent Care Less Than 30 days Type of Care Needed: Skilled Rehab Potential: Good Prognosis: Good Additional Orders/Day of Discharge Day of Discharge: 11/02/22 Dietary and Speech Recommendations Dietitian Recommendations/Changes: RD will change diet to 2200kcal CCD to manage blood glucose and meet estimated calorie needs. Discharge Plan Admission Admit Date/Time: 10/31/22 10:23 Primary Reason for Your Visit: left thigh pain Attending Provider: Cece Bazzi Primary Care Provider: Nestor Holly Consulting Providers: Vanessa Grewal ; Yonatan Tay Instructions Patient Instructions: ED Fall Prevention Additional Instructions / Restrictions: Weightbearing: Weightbearing as tolerated right lower extremity with a walker DVT Prophylaxis: Lovenox 40 mg subcutaneously daily to start postoperative day #1 and continued x28 days postoperatively Dressing: Dry sterile dressing changes daily and as needed for saturation X-Rays: 2 weeks postop in the office Follow-up: 2 weeks post-operatively with Dr. Tay in the office Would recommend rechecking H&H in the next 48 hours. Discharge Orders/Prescriptions Prescriptions: New ibuprofen 600 mg Tablet 600 mg PO Q8H PRN PRN (Reason: Pain 6-10) Qty: 0 0RF acetaminophen [Tylenol] 325 mg Tablet 650 mg PO Q4H PRN PRN (Reason: Fever, pain 1-10/10) Qty: 0 0RF enoxaparin 40 mg/0.4 mL Syringe 40 mg subcut DAILY@0600 27 Days Qty: 0 0RF Continued lisinopril 2.5 mg tablet 10 mg PO DAILY nitrofurantoin macrocrystal 25 mg capsule 50 mg PO DAILY Rx Instructions: must administer with a meal/food Zyrtec 10 mg capsule 10 mg PO DAILY multivitamin [Multiple Vitamins] 1 EACH tablet 1 ea PO DAILY Vyvanse 60 mg PO/SL DAILY guanfacine 2 mg Tablet Extended Release 24 Hr 2 mg PO DAILY fenofibrate nanocrystallized 145 mg Tablet 145 mg PO DAILY Referrals / Follow Up: Nestor Holly DO [Primary Care Provider] - Within 1 Week Yonatan Tay DO [Med Staff - Active Staff] - Within 2 Weeks Disposition Disposition (needs filled in before D/C Order can be placed): [facility]
--- NOTE | 2022-11-03 15:51 | DS.PCM_ITS ---
Providers Date of Admission: 10/31/22 Date of Discharge: 11/03/22 Primary Care Physician: Dr. Nestor Holly, DO Consultations 10/31/22 18:08 Consult: Orthopedics Routine Consulting Provider: Yonatan Tay Reason for Consult: femur fracture EMERGENT Consult: No MD Notified: Yes Date Notified: 10/31/22 Time Notified: 18:08 Method of Notification: Text Reason For Visit: FALL,RLE PAIN Diagnosis Discharge Diagnosis (1) Intertrochanteric fracture of right femur: Status: Acute Code(s): S72.141A - Displaced intertrochanteric fracture of right femur, initial encounter for closed fracture Plan #Right anterior thigh pain after mechanical fall?left femur fracture #Intellectual disability, autism, ADHD #Hypertension Medications at Discharge Home Medications Vyvanse 60 mg PO/SL DAILY 07/30/17 multivitamin (Multiple Vitamins tablet) 1 ea PO DAILY 07/30/17 cetirizine 10 mg capsule (Zyrtec) 10 mg PO DAILY 10/01/21 lisinopril 2.5 mg tablet 10 mg PO DAILY 10/01/21 nitrofurantoin macrocrystal 25 mg capsule 50 mg PO DAILY 10/01/21 fenofibrate nanocrystallized 145 mg tablet 145 mg PO DAILY 10/29/22 guanfacine 2 mg tablet,extended release 24 hr 2 mg PO DAILY 10/29/22 acetaminophen 325 mg tablet (Tylenol) 650 mg PO Q4H PRN PRN Fever, pain 1-10/10 #0 tabs 11/02/22 enoxaparin 40 mg/0.4 mL subcutaneous syringe 40 mg (0.4 mL) subcut DAILY@0600 27 days #0 mL 11/02/22 ibuprofen 600 mg tablet 600 mg PO Q8H PRN PRN Pain 6-10 #0 tabs 11/02/22 Hospital Course Operations - (Treatment of intertrochanteric hip fracture with intramedullary nail right femur for a right intertrochanteric proximal femur fracture) Procedures Transthoracic echo Summary of Care Provided Minutes Spent on Discharge: 35 Hospital Course: 27-year-old male with a history of intellectual disability, ADHD, hypertension who presented to [facility] 10/28/2022 with an unwitnessed fall in the basement while visiting his sister's house with onset of immediate distal right thigh discomfort and inability to bear weight. On arrival to the emergency department x-ray of the femur as well as tibia and fibula had no acute findings but due to his inability to bear weight he was admitted as his mother could not care for him at home. He continued to complain of pain though it was somewhat inconsistent, repeat x-ray was negative however due to high clinical suspicion CT obtained. This showed left proximal femur fracture and he was julio cesar en to the OR on 11/01 for treatment of intertrochanteric hip fracture with intramedullary nail in the right femur. He did have some blood loss after surgery that was treated. Did have slight drop in hemoglobin the next day but then this stabilized, pain improving, beginning to bear weight though slowly, not tense. Cleared for transfer to rehab by orthopedic surgery. Will need Lovenox 40 mg subcutaneous daily starting 11/02 and continued for 28 days, needs a CBC within 48 hours. Will need x-rays in 2 weeks in the office with Dr. Tay and needs to follow-up in 2 weeks postop with him as well. Weightbearing as tolerated on the right lower extremity with a walker. On the day of discharge he reports his pain is feeling better, had no other acute complaints. Thigh not overtly tender to palpation and not tense Physical Exam Const alert and no apparent distress HEENT head/scalp atraumatic Eyes Eyes Narrative: EOM grossly intact, anicteric Neck supple Resp normal respiratory effort Cardio regular rate GI non-distended Extremity Extremity Narrative: Laying in bed with extremities extended, mild warmth on right leg, no tension, no significant tenderness on palp Neuro Neuro Narrative: No overt focal deficits appreciated, moving extremities in bed Psych Psych Narrative: Cooperative this morning Weight / BMI Weight Weight: 102.7 kg Body Mass Index (BMI) 29.0 ABG / Lab / Microbiology Data Result Diagrams: 11/03/22 11:50 11/03/22 06:16 Laboratory: Laboratory Results - last 24 hr 11/03/22 06:16: WBC 11.3 H, RBC 2.86 L, Hgb 8.4 L, Hct 26.1 L, MCV 91.3, MCH 29.4, MCHC 32.2, RDW Std Deviation 44.2 H, RDW Coeff of Ese 13.4, Plt Count 323, MPV 10.4, Immature Gran % (Auto) 0.300, Neut % (Auto) 62.4, Lymph % (Auto) 26.7, [place] % (Auto) 9.4, Eos % (Auto) 1.0, Baso % (Auto) 0.2, Absolute Neuts (auto) 7.1, Absolute Lymphs (auto) 3.03, Nucleated RBC % 0.2 11/03/22 06:16: Sodium 137, Potassium 3.9, Chloride 105, Carbon Dioxide 29.0, Anion Gap 3 L, BUN 17, Creatinine 0.73, Estim Creat Clear Calc 175.16, Est GFR (MDRD) Af Amer 164, Est GFR (MDRD) Non-Af 135, BUN/Creatinine Ratio 23.3 H, Glucose 110 H, Calcium 8.5 11/03/22 11:50: WBC 10.0, RBC 2.84 L, Hgb 8.7 L, Hct 25.9 L, MCV 91.2, MCH 30.6, MCHC 33.6, RDW Std Deviation 45.1 H, RDW Coeff of Ese 13.4, Plt Count 318, MPV 10.4 Microbiology: Microbiology 11/03/22 15:20 Nasal Secretion SARS-CoV-2 Antigen (Rapid) - Final Radiography Diagnostic Testing: Radiology Impression Hip X-Ray 11/01/22 16:10 IMPRESSION: Spot images documenting open reduction internal fixation of an intertrochanteric right femoral fracture. Electronically Signed: Fawn Bailey MD at 4:49 EST Reading Location ID and State: [address] [place] [address] , Service support , D/C Instructions Discharge Diet: No restrictions Meaningful Use Info Meaningful Use Diagnoses (Choose all that apply): None applicable Discharge Plan Admission Admit Date/Time: 10/31/22 10:23 Primary Reason for Your Visit: left thigh pain Attending Provider: Cece Bazzi Primary Care Provider: Nestor Holly Consulting Providers: Vanessa Grewal ; Yonatan Tay Instructions Patient Instructions: ED Fall Prevention Additional Instructions / Restrictions: Weightbearing: Weightbearing as tolerated right lower extremity with a walker DVT Prophylaxis: Lovenox 40 mg subcutaneously daily to start postoperative day # 1 and continued x28 days postoperatively Dressing: Dry sterile dressing changes daily and as needed for saturation X-Rays: 2 weeks postop in the office Follow-up: 2 weeks post-operatively with Dr. Tay in the office Would recommend rechecking H&H in the next 48 hours. Discharge Orders/Prescriptions Prescriptions: New ibuprofen 600 mg Tablet 600 mg PO Q8H PRN PRN (Reason: Pain 6-10) Qty: 0 0RF acetaminophen [Tylenol] 325 mg Tablet 650 mg PO Q4H PRN PRN (Reason: Fever, pain 1-10/10) Qty: 0 0RF enoxaparin 40 mg/0.4 mL Syringe 40 mg subcut DAILY@0600 27 Days Qty: 0 0RF Continued lisinopril 2.5 mg tablet 10 mg PO DAILY nitrofurantoin macrocrystal 25 mg capsule 50 mg PO DAILY Rx Instructions: must administer with a meal/food Zyrtec 10 mg capsule 10 mg PO DAILY multivitamin [Multiple Vitamins] 1 EACH tablet 1 ea PO DAILY Vyvanse 60 mg PO/SL DAILY guanfacine 2 mg Tablet Extended Release 24 Hr 2 mg PO DAILY fenofibrate nanocrystallized 145 mg Tablet 145 mg PO DAILY Referrals / Follow Up: Nestor Holly DO [Primary Care Provider] - Within 1 Week Yontaan Tay DO [Med Staff - Active Staff] - Within 2 Weeks Disposition Disposition (needs filled in before D/C Order can be placed): [facility] Charges/Coding Visit Charges Inpatient E&M: 14717 Disch Hosp
== END 2022-11-03 21:05 | disposition skilled nursing facility (03) | DRG 308 ==
LOC: ED 21:15 → MS3 21:32
PROVIDERS: Anesthesiology; Student in an Organized Health Care Education/Training Program; Admitting Provider Family Medicine; Emergency Provider Emergency Medicine; PCP Student in an Organized Health Care Education/Training Program; Visit Provider Internal Medicine
PROC: 0QS636Z Reposition Right Upper Femur with Intramedullary Internal Fixation Device, Percutaneous Approach (ICD-10-PCS; CPT 27245; principal; 2022-11-01 17:45)
DX: S72.141A Displaced intertrochanteric fracture of right femur, initial encounter for closed fracture (principal); E11.9 Type 2 diabetes mellitus without complications; I10 Essential (primary) hypertension; W19.XXXA Unspecified fall, initial encounter; G47.33 Obstructive sleep apnea (adult) (pediatric); Y92.018 Other place in single-family (private) house as the place of occurrence of the external cause; F90.9 Attention-deficit hyperactivity disorder, unspecified type; F84.0 Autistic disorder; E66.3 Overweight; Z68.29 Body mass index [BMI] 29.0-29.9, adult; F79 Unspecified intellectual disabilities; Z79.84 Long term (current) use of oral hypoglycemic drugs; Z79.899 Other long term (current) drug therapy
CPT/HCPCS: 36415; 73502; 73552; 73590; 73700; 76000; 80048; 80053; 82306; 82962; 83036; 85025; 85027; 86850; 86900; 86901; 87811; 93005; 93306; 97110; 97116; 97162; 97166; 97530; 97535; 97802; 99251; 99283; C1776; J7120; A4216; G0463; J2405

== ENCOUNTER → 2023-04-30 | Outpatient (CLI) | payer MEDICAID, SELFPAY ==
[2023-04-30 10:57] LABS: Vitamin D,25 Hydroxy 25.5 ng/mL
[2023-04-30 11:01] LABS: PTHIN 33.1 pg/mL (18.4-80.1)
[2023-04-30 11:15] LABS: ALB/GLOB Ratio 0.9 RATIO (0.9-2.4); AST(SGOT) 20 U/L (15-37); Alanine Aminotransfer ALT/SGPT 33 U/L (16-61); Alkaline Phosphatase 39 U/L (45-117); Anion Gap 6 (5-15); BUN 12 mg/dL (7-18); BUN/Creat Ratio 12.2 RATIO (10-20); Calcium,Total 9.6 mg/dL (8.5-10.1); Chloride 106 mmol/L (98-107); Creatinine, Serum 0.99 mg/dL (0.70-1.30); EST Glomerular Filtration Rate 95 mL/min (>60); Est Glom Filt Rate - Afr Amer 115 mL/min (>60); Follicle Stimulating Hormone 15.1 mIU/mL; Globulin 4.4 g/dL (2.2-4.2); Glucose 121 mg/dL (74-106); Magnesium 2.5 mg/dL (1.6-2.6); Phosphorus 2.1 mg/dL (2.5-4.9); Potassium 3.6 mmol/L (3.5-5.1); Protein, Total 8.4 g/dL (6.4-8.2); Sodium Level 138 mmol/L (136-145); T4 Free Direct 0.89 ng/dL (0.76-1.46); Thyroid Stim Hormone (TSH) 2.25 uIU/mL (0.358-3.74)
[2023-05-03 11:09] LABS: Testosterone, Free 6.87 ng/dL (5.00-21.00); Testosterone, Total 229 ng/dL (264-916)
[2023-05-06 15:09] LABS: PROEL- A/G Ratio 1.1 (0.7-1.7); PROEL- Albumin 3.8 g/dL (2.9-4.4); PROEL- Alpha-1 Globulin 0.2 g/dL (0.0-0.4); PROEL- Alpha-2 Globulin 0.9 g/dL (0.4-1.0); PROEL- Beta Globulin 1.5 g/dL (0.7-1.3); PROEL- Gamma Globulin 0.9 g/dL (0.4-1.8); PROEL- Globulin, Total 3.6 g/dL (2.2-3.9); PROEL- TOTAL PROTEIN 7.4 g/dL (6.0-8.5)
== END | disposition home or self-care (01) ==
LOC: LAB 09:36
PROVIDERS: PCP Student in an Organized Health Care Education/Training Program; Referring Provider Internal Medicine Endocrinology, Diabetes & Metabolism; Visit Provider Internal Medicine Endocrinology, Diabetes & Metabolism
DX: S72.141A Displaced intertrochanteric fracture of right femur, initial encounter for closed fracture (principal); E11.9 Type 2 diabetes mellitus without complications; I10 Essential (primary) hypertension; R62.50 Unspecified lack of expected normal physiological development in childhood; F84.0 Autistic disorder; R26.81 Unsteadiness on feet; E55.9 Vitamin D deficiency, unspecified
CPT/HCPCS: 36415; 80053; 82306; 83001; 83002; 83735; 83970; 84100; 84165; 84402; 84403; 84439; 84443

== ENCOUNTER → 2023-07-24 | Outpatient (CLI) | payer MEDICAID, SELFPAY ==
[2023-07-24 09:33] LABS: Hematocrit 40.5 % (40-54); Mean Corp Hgb Conc 32.1 g/dL (32-36); Mean Corpuscular Hgb 29.1 pg (27.0-32.0); Mean Corpuscular Volume 90.8 fL (80-94); Mean Platelet Vol. 10.4 fl (6.2-12.0); Platelet Count 409 K/mm3 (150-450); RBC Distribution Width CV 14.1 % (11.6-14.6); RBC Distribution Width SD 47.6 fl (35.1-43.9); Red Blood Count 4.46 M/mm3 (4.6-6.2); White Blood Count 7.8 K/mm3 (4.4-11.0)
[2023-07-24 10:06] LABS: Microalbumin,Random Urine 45.1 mg/L (NO RANGE EST.); Microalbumin:Creatinine Ratio 39.2 mg/g CRE (<30 mg/g CRE)
[2023-07-24 10:08] LABS: Hemoglobin A1c 5.7 % (3.8-5.6)
[2023-07-24 10:09] LABS: ALB/GLOB Ratio 0.7 RATIO (0.9-2.4); AST(SGOT) 17 U/L (15-37); Alanine Aminotransfer ALT/SGPT 33 U/L (16-61); Albumin, Serum 3.3 g/dL (3.2-5.0); Alkaline Phosphatase 35 U/L (45-117); Anion Gap 3 (5-15); BUN 11 mg/dL (7-18); BUN/Creat Ratio 13.1 RATIO (10-20); Calcium,Total 9.2 mg/dL (8.5-10.1); Chloride 107 mmol/L (98-107); Cholesterol 210 mg/dL (200); Creatinine, Serum 0.84 mg/dL (0.70-1.30); EST Glomerular Filtration Rate 115 mL/min (>60); Est Glom Filt Rate - Afr Amer 139 mL/min (>60); Globulin 4.6 g/dL (2.2-4.2); Glucose 97 mg/dL (74-106); High Density Lipoprotein 30 mg/dL; Potassium 4.1 mmol/L (3.5-5.1); Protein, Total 7.9 g/dL (6.4-8.2); Sodium Level 139 mmol/L (136-145); Triglycerides 150 mg/dL; Very Low Density Lipoprotein 30 mg/dL (5-40)
[2023-07-24 10:51] LABS: Hepatitis C Antibody Non-Reactive (Nonreactive)
== END | disposition home or self-care (01) ==
LOC: LAB 08:44
PROVIDERS: PCP Student in an Organized Health Care Education/Training Program; Referring Provider Student in an Organized Health Care Education/Training Program; Visit Provider Student in an Organized Health Care Education/Training Program
DX: N39.0 Urinary tract infection, site not specified (principal); I10 Essential (primary) hypertension; E78.1 Pure hyperglyceridemia; R73.03 Prediabetes; Z11.59 Encounter for screening for other viral diseases
CPT/HCPCS: 36415; 80053; 80061; 82043; 82570; 83036; 85027; 86803

== ENCOUNTER → 2024-05-13 | Outpatient (CLI) | payer MEDICAID, SELFPAY ==
[2024-05-13 12:57] LABS: BNP,B-Type NATRIURETIC PEPTIDE 25.8 pg/mL (0-100)
== END | disposition home or self-care (01) ==
LOC: LAB 11:28
PROVIDERS: PCP Student in an Organized Health Care Education/Training Program; Referring Provider Internal Medicine Cardiovascular Disease; Visit Provider Internal Medicine Cardiovascular Disease
DX: I10 Essential (primary) hypertension (principal)
CPT/HCPCS: 36415; 83880

== ENCOUNTER 2025-02-04 20:16 | Emergency (ER) | payer MEDICAID, SELFPAY ==
[2025-02-04 20:17] VITALS: BP 147/95; PULSE 100; RESP 18; TEMP 36.7; O2SAT 100; BMI 29.7
--- NOTE | 2025-02-04 20:37 | CT_ITS ---
PROCEDURE: SPINE CERVICAL WITHOUT CONTRAS 02/04/2025 REASON FOR EXAM: FALL TECHNIQUE: Cervical spine CT without contrast. Coronal and Sagittal reconstruction series were provided. One or more dose reduction techniques were used (e.g., Automated exposure control, adjustment of the mA and/or kV according to patient size, use of iterative reconstruction technique COMPARISON: None FINDINGS: Alignment: Cervical lordosis is maintained. Atlantoaxial interval is within normal limits. Vertebrae: Vertebral body heights and disc spaces are maintained. No acute fracture or traumatic malalignment. Soft Tissues: Paraspinal and prevertebral soft tissues are within normal limits. Imaged lung cole are clear. No significant degenerative changes of the cervical spine. CT/Spine Cervical without Contras IMPRESSION: No acute fracture or traumatic subluxation. Reading Location: [facility]
--- NOTE | 2025-02-04 20:37 | CT_ITS ---
PROCEDURE: BRAIN/HEAD WITHOUT CONTRAST 02/04/2025 REASON FOR EXAM: FALL, HEAD INJURY TECHNIQUE: Head CT without intravenous contrast. Coronal and Sagittal reconstruction series were provided. One or more dose reduction techniques were used (e.g., Automated exposure control, adjustment of the mA and/or kV according to patient size, use of iterative reconstruction technique. COMPARISON: None FINDINGS: CT images of the brain were acquired without intravenous contrast. Multiplanar reformats were acquired. COMPARISON: None available. FINDINGS: * ACUTE: No acute infarct or hemorrhage. No mass effect or herniation. * BRAIN PARENCHYMA: Signal intensities are within normal limits for age. * VENTRICLES/EXTRA-AXIAL SPACES: No hydrocephalus or extra-axial fluid collections. * EXTRACRANIAL STRUCTURES: Visualized osseous structures are normal. Mild right parietal scalp soft tissue swelling with underlying hematoma. CT/Brain/Head without Contrast IMPRESSION: No acute intracranial abnormality Mild right parietal scalp soft tissue swelling with underlying hematoma. Reading Location: [facility]
--- NOTE | 2025-02-04 20:38 | EX.ED.DYSGE1 ---
HPI History of Present Illness Chief Complaint: Head Injury Detail of Chief Complaint: Fall with head injury Informant: patient Narrative Narrative: Patient presents to the emergency department after a fall and head injury that occurred around 6 PM today. Patient was in the kitchen and he tripped and fell striking the back of his head on a printer stand. No loss of consciousness. He has been complaining of head pain and nausea and pain in his neck. Denies any paresthesias. Denies other injuries PFSH COUNT INCLUDES [facility] Medical History Scoliosis Low serum T4 level Kyphosis History of recurrent UTI (urinary tract infection) Vitamin D deficiency Metabolic syndrome X Hypertriglyceridemia Tetrasomy 18p Mood disturbance Trisomy 18 Heart murmur Abnormal findings on diagnostic imaging of heart and coronary circulation Developmental delay with autism spectrum disorder and gait instability Intertrochanteric fracture of right femur Hypergammaglobulinemia SHIRLEY (obstructive sleep apnea) Deaf ADHD Cognitive impairment HTN (hypertension) Diabetes mellitus, type 2 Overweight Hx-hypospadias Home Medications ?Medication ?Instructions ?Recorded ?Last Taken ?Type Vyvanse 60 mg PO/SL DAILY 07/30/17 Unknown History multivitamin (Multiple Vitamins 1 ea PO DAILY 07/30/17 Unknown History tablet) cetirizine 10 mg capsule (Zyrtec) 10 mg PO DAILY 10/01/21 Unknown History nitrofurantoin macrocrystal 25 mg 50 mg PO DAILY 10/01/21 Unknown History capsule fenofibrate nanocrystallized 145 145 mg PO DAILY 10/29/22 Unknown History mg tablet guanfacine 2 mg tablet,extended 2 mg PO DAILY 10/29/22 Unknown History release 24 hr acetaminophen 325 mg tablet 650 mg (2 x 325 mg) PO Q4H PRN PRN 11/02/22 Unknown Rx (Tylenol) Fever, pain 1-10/10 #0 tabs ibuprofen 600 mg tablet 600 mg PO Q8H PRN PRN Pain 6-10 #0 11/02/22 Unknown Rx tabs losartan 25 mg tablet 25 mg PO DAILY 04/30/23 Unknown History cholecalciferol (vitamin D3) 125 125 mcg PO DAILY 04/10/24 Unknown History mcg (5,000 unit) capsule polyethylene glycol 3350 17 4 g PO DAILY 04/10/24 Unknown History gram/dose oral powder (Miralax) metformin 500 mg tablet,extended 500 mg PO DAILY 05/13/24 Unknown History release 24 hr Allergy/AdvReac Type Severity Reaction Status Date / Time Penicillins Allergy Mild Rash Verified 02/04/25 20:20 Family History Mother Asthma Diabetes Depression Hypertension Hypercholesterolemia Uterine cancer Father Heart disease Diabetes Asthma Hypertension Hypercholesterolemia Sister Anxiety Depression Mental disorder Psychiatric care Suicide attempt Brother Anxiety Depression Mental disorder Surgical History S/P insertion of hypoglossal nerve stimulator (01/02/24) Hx of tonsillectomy History of genitourinary surgical procedure History of hand surgery Myringotomy tube status Social History Smoking Status: Never smoker alcohol intake: never substance use type: does not use ROS ROS ED Review of Systems ROS Unobtainable: other Constitutional Constitutional ED: Reports lethargy; Denies chills, fever(s), sweats or weight loss Eyes Eyes: Denies blurry vision, change in vision or diplopia ENT ENT ED: Denies rhinorrhea or sore throat Cardiovascular Cardiovascular: Denies chest pain, orthopnea or racing heartbeat Respiratory/Chest Respiratory/Chest: Denies cough, dyspnea, dyspnea on exertion, orthopnea or sputum Gastrointestinal Gastrointestinal: Reports nausea; Denies abdominal pain, diarrhea or vomiting Genitourinary Genitourinary ED: Denies dysuria, hematuria or urinary frequency Musculoskeletal Musculoskeletal: Reports neck pain; Denies arthralgias, back pain or myalgias Integumentary Denies abscess, Abrasions or rash Neurologic Neurologic: Reports headache(s); Denies weakness Psychiatric Psychiatric: Denies anxiety, depression or suicidal thoughts Endocrine Endocrinology: Denies polydipsia, polyphagia or polyuria Hematologic/Lymphatic Hematologic/Lymphatic: Denies easy bleeding, easy bruising or lymphadenopathy Allergic/Immunologic Allergic/Immunologic ED: Denies mouth swelling, tongue swelling or urticaria EXAM Physical Exam Const Vital Signs: 02/04/25 20:17 02/04/25 20:41 Temperature 98.1 F Temperature Source Oral Pulse Rate 100 Respiratory Rate 18 Respiratory Effort Normal Non-Labored Respiratory Depth Normal Respiratory Pattern Normal Blood Pressure 147/95 H Blood Pressure Mean 112 Pulse Ox 100 Oxygen Delivery Method Room Air Positive well nourished and well developed General Appearance ED: well developed and NAD HEENT Reports TM's clear and moist mucous membranes HEENT Narrative: Small 1 cm abrasion/laceration right posterior occiput. No active bleeding. Small hematoma. No bony step-offs or depressions normocephalic and atraumatic; Negative for trauma or tenderness Tympanic Membrane ED: Yes TM's clear Eyes PERRL and EOMs intact bilaterally General Eye ED: Negative for pale conjunctiva or scleral icterus Neck no lymphadenopathy, supple and no JVD Neck Narrative: Mild diffuse tenderness. No bony step-offs or depressions General: Negative for tenderness Chest Wall inspection of chest normal and palpation of chest normal Chest: Negative for tenderness Resp normal respiratory effort and clear to auscultation bilaterally Effort and Inspection: Negative for respiratory distress or pain with movement Auscultation: Negative for rhonchi, wheezes or diminished lung sounds Cardio regular rate, regular rhythm, S1 normal heart sound, S2 normal heart sound and no murmurs Peripheral Pulses: pulses 2+ throughout GI normal to inspection, nondistended, normoactive bowel sounds, soft to palpation, non-tender, non-distended and no masses Back/Spine no CVA tenderness and no thoracic nor lumbar tenderness Extremity normal to inspection General Extremety ED: Negative for edema General Extremity: Negative for edema Neuro oriented x3, CN's II-XII intact bilaterally, no sensory deficits noted and gait normal Sensorium / Orientation: awake, alert, oriented to person, oriented to place and oriented to time Motor Exam: strength 5/5 throughout and strength abnormal Psych mental status grossly normal Skin no rashes or lesions noted and no wounds MDM MDM MDM Narrative Medical decision making narrative: Patient presents with mechanical fall and head injury. Patient has a small laceration to right posterior scalp. Small hematoma. CT scan of brain without contrast showed a small hematoma right posterior scalp however there is no skull fracture or intracranial hemorrhage. CT of the cervical spine also negative for fracture. Patient will be discharged to home. Advised to follow-up with primary care physician in 3 to 5 days. Discharged home stable condition. Patient did not need suture repair. He is refusing a tetanus shot although this is not a tetanus prone wound. His mother is with him and is in agreement. Lab Data Attestation: I reviewed the patient's lab results. Radiography Diagnostic Testing: Clinical Impression(s) from Imaging Studies Brain CT 02/04/25 20:37 IMPRESSION: No acute intracranial abnormality Mild right parietal scalp soft tissue swelling with underlying hematoma. [facility] Triage Chief Complaint: Head Injury ED Provider: Emir Carlton Dx/Rx/DC Orders Clinical Impression: Fall, Closed head injury, Cervical strain Instructions: ED Head Injury (Adult), ED Neck Sprain or Strain Prescriptions: No Action nitrofurantoin macrocrystal 25 mg capsule 50 mg PO DAILY Rx Instructions: must administer with a meal/food Zyrtec 10 mg capsule 10 mg PO DAILY losartan 25 mg tablet 25 mg PO DAILY cholecalciferol (vitamin D3) 125 mcg (5,000 unit) capsule 125 mcg PO DAILY polyethylene glycol 3350 [Miralax] 17 gram/dose powder 4 g PO DAILY metformin 500 mg tablet extended release 24 hr 500 mg PO DAILY multivitamin [Multiple Vitamins] 1 EACH tablet 1 ea PO DAILY Vyvanse 60 mg PO/SL DAILY guanfacine 2 mg Tablet Extended Release 24 Hr 2 mg PO DAILY fenofibrate nanocrystallized 145 mg Tablet 145 mg PO DAILY ibuprofen 600 mg Tablet 600 mg PO Q8H PRN PRN (Reason: Pain 6-10) Qty: 0 0RF acetaminophen [Tylenol] 325 mg Tablet 650 mg PO Q4H PRN PRN (Reason: Fever, pain 1-10/10) Qty: 0 0RF Primary Care Provider: Nestor Holly Referrals: Nestor Holly DO [Primary Care Provider] - 3-5 Days Print Language: Polish Disposition Disposition: Home, Self Care
[2025-02-04] MEDS: Acetaminophen 325 MG Tablet 650 MG PO (22:52)
== END 2025-02-04 22:54 | disposition home or self-care (01) ==
PROVIDERS: Emergency Provider Emergency Medicine; PCP Student in an Organized Health Care Education/Training Program; Referring Provider Emergency Medicine; Visit Provider Emergency Medicine
DX: S09.90XA Unspecified injury of head, initial encounter (principal); E11.9 Type 2 diabetes mellitus without complications; I10 Essential (primary) hypertension; S16.1XXA Strain of muscle, fascia and tendon at neck level, initial encounter; W01.190A Fall on same level from slipping, tripping and stumbling with subsequent striking against furniture, initial encounter; Y92.89 Other specified places as the place of occurrence of the external cause; Z79.899 Other long term (current) drug therapy; Z79.84 Long term (current) use of oral hypoglycemic drugs
CPT/HCPCS: 70450; 72125; 99282

== ENCOUNTER → 2025-06-09 | Outpatient (CLI) | payer MEDICAID, SELFPAY ==
--- NOTE | 2025-06-09 13:57 | ECHOD_ITS ---
Reason For Study Reason For Study: MURMUR Procedure This was a 2D Doppler, Color Flow transthoracic echocardiogram. The study was technically difficult. D/T cognitive impairment and impatience. Exam performed in department. Left Ventricle Normal LV size. Mild concentric left ventricular hypertrophy. Left ventricular systolic function is normal. The left ventricular ejection fraction is 60 %. No regional wall motion abnormalities noted. Right Ventricle Normal RV size. Normal systolic function. Atria Normal left atrium. Normal right atrium. Mitral Valve Normal mitral valve. Systolic anterior motion of the mitral valve. Mild (1+) eccentric mitral valve insufficiency. Tricuspid Valve Normal tricuspid valve. Mild to moderate (1-2+) tricuspid valve insufficiency. Pulmonary artery systolic pressure is 43 mmHg. Aortic Valve Trisinus/trileaflet aortic valve. Peak aortic valve gradient 26 mmHg. Mean aortic valve gradient 17 mmHg. Mild aortic stenosis. Pulmonic Valve Normal pulmonic valve. Great Vessels Normal aortic root. The pulmonary artery is normal size. Inferior vena cava collapse with respiration. Pericardium/Pleural No pericardial effusion. MMode/2D Measurements & Calculations LVIDd: 5.8 cm IVSd: 1.2 cm LVOT diam: 2.1 cm LVIDs: 4.2 cm LVPWd: 1.2 cm LVOT area: 3.5 cm2 RVDd: 3.2 cm FS: 28.8 % LAV(MOD-bp): 52.9 ml LA A4 area: 19.0 cm2 LA dimension(2D): 3.8 cm LAV(MOD-bp) Indexed: 22.6 ml/m2 LAV(MOD-sp2): 52.8 ml LAV(MOD-sp4): 53.4 ml TAPSE: 2.8 cm RA A4 area: 14.2 cm2 Time Measurements MV dec time: 0.19 sec Doppler Measurements & Calculations MV E max kritsofer: 138.7 cm/sec Lat Peak E' Kristofer: 13.4 cm/sec Med Peak E' Kristofer: 10.2 cm/sec MV A max kristofer: 120.5 cm/sec E/E' lat: 10.3 E/E' med: 13.6 MV E/A: 1.2 MV V2 max: 153.4 cm/sec MV P1/2t max kristofer: 156.6 cm/sec Ao V2 max: 256.7 cm/sec MV max P.4 mmHg MV P1/2t: 54.5 msec Ao max P.4 mmHg MV V2 mean: 94.8 cm/sec MV dec slope: 842.2 cm/sec2 Ao V2 mean: 199.0 cm/sec MV mean P.0 mmHg Ao mean P.7 mmHg MV V2 VTI: 29.2 cm MVA(P1/2t): 4.0 cm2 Ao V2 VTI: 46.8 cm MR max kristofer: 586.3 cm/sec PA V2 max: 153.5 cm/sec TR max kristofer: 315.8 cm/sec MR max P.5 mmHg PA V2 mean: 100.0 cm/sec TR max P.9 mmHg PA V2 VTI: 24.9 cm ECHO/Echo Complete Interpretation Summary Normal LV size. Left ventricular systolic function is normal. Mild concentric left ventricular hypertrophy. The left ventricular ejection fraction is 60 %. Systolic anterior motion of the mitral valve. Pulmonary artery systolic pressure is 43 mmHg. Mean aortic valve gradient 17 mmHg. Mild aortic stenosis. Ordering Physician: Freida Rodriguez Referring Physician: Nestor Holly Performed By: Hailee Gavin, VIKTORIYA, RVT
--- NOTE | 2025-06-09 13:57 | ECHOD_ITS ---
Reason For Study Reason For Study: MURMUR Procedure This was a 2D Doppler, Color Flow transthoracic echocardiogram. The study was technically difficult. D/T cognitive impairment and impatience. Exam performed in department. Left Ventricle Normal LV size. Mild concentric left ventricular hypertrophy. Left ventricular systolic function is normal. The left ventricular ejection fraction is 60 %. No regional wall motion abnormalities noted. Right Ventricle Normal RV size. Normal systolic function. Atria Normal left atrium. Normal right atrium. Mitral Valve Normal mitral valve. Systolic anterior motion of the mitral valve. Mild (1+) eccentric mitral valve insufficiency. Tricuspid Valve Normal tricuspid valve. Mild to moderate (1-2+) tricuspid valve insufficiency. Pulmonary artery systolic pressure is 43 mmHg. Aortic Valve Trisinus/trileaflet aortic valve. Peak aortic valve gradient 26 mmHg. Mean aortic valve gradient 17 mmHg. Mild aortic stenosis. Pulmonic Valve Normal pulmonic valve. Great Vessels Normal aortic root. The pulmonary artery is normal size. Inferior vena cava collapse with respiration. Pericardium/Pleural No pericardial effusion. MMode/2D Measurements & Calculations LVIDd: 5.8 cm IVSd: 1.2 cm LVOT diam: 2.1 cm LVIDs: 4.2 cm LVPWd: 1.2 cm LVOT area: 3.5 cm2 RVDd: 3.2 cm FS: 28.8 % LAV(MOD-bp): 52.9 ml LA A4 area: 19.0 cm2 LA dimension(2D): 3.8 cm LAV(MOD-bp) Indexed: 22.6 ml/m2 LAV(MOD-sp2): 52.8 ml LAV(MOD-sp4): 53.4 ml TAPSE: 2.8 cm RA A4 area: 14.2 cm2 Time Measurements MV dec time: 0.19 sec Doppler Measurements & Calculations MV E max kristofer: 138.7 cm/sec Lat Peak E' Kristofer: 13.4 cm/sec Med Peak E' Kristofer: 10.2 cm/sec MV A max kristofer: 120.5 cm/sec E/E' lat: 10.3 E/E' med: 13.6 MV E/A: 1.2 MV V2 max: 153.4 cm/sec MV P1/2t max kristfoer: 156.6 cm/sec Ao V2 max: 256.7 cm/sec MV max P.4 mmHg MV P1/2t: 54.5 msec Ao max P.4 mmHg MV V2 mean: 94.8 cm/sec MV dec slope: 842.2 cm/sec2 Ao V2 mean: 199.0 cm/sec MV mean P.0 mmHg Ao mean P.7 mmHg MV V2 VTI: 29.2 cm MVA(P1/2t): 4.0 cm2 Ao V2 VTI: 46.8 cm MR max kristofer: 586.3 cm/sec PA V2 max: 153.5 cm/sec TR max kristofer: 315.8 cm/sec MR max P.5 mmHg PA V2 mean: 100.0 cm/sec TR max P.9 mmHg PA V2 VTI: 24.9 cm ECHO/Echo Complete Interpretation Summary Normal LV size. Left ventricular systolic function is normal. Mild concentric left ventricular hypertrophy. The left ventricular ejection fraction is 60 %. Systolic anterior motion of the mitral valve. Pulmonary artery systolic pressure is 43 mmHg. Mean aortic valve gradient 17 mmHg. Mild aortic stenosis. Ordering Physician: Freida Rodriguez Referring Physician: Nestor Holly Performed By: Hailee Gavin, VIKTORIYA, RVT
== END | disposition home or self-care (01) ==
LOC: CVS 13:54
PROVIDERS: PCP Student in an Organized Health Care Education/Training Program; Referring Provider Nurse Practitioner Gerontology; Visit Provider Nurse Practitioner Gerontology
DX: R01.1 Cardiac murmur, unspecified (principal)
CPT/HCPCS: 93306